=== PATIENT | female | born 1935 | race Caucasian/White ===

== ENCOUNTER 2020-07-17 12:38 | Inpatient (IN) | payer MEDICARE, OTHER, SELFPAY ==
[2020-07-17] VITALS (11 sets, daily range): BP systolic 59–239; BP diastolic 28–127; PULSE 57–104; RESP 14–18; TEMP 36.4–36.9; O2SAT 95–100; BMI 21.7
--- NOTE | 2020-07-17 | ECG_ITS ---
Test Reason : ABNORMAL LAB Blood Pressure : / mmHG Vent. Rate : 053 BPM Atrial Rate : 053 BPM P-R Int : 192 ms QRS Dur : 084 ms QT Int : 482 ms P-R-T Axes : 059 035 062 degrees QTc Int : 452 ms Sinus bradycardia with Premature atrial complexes Otherwise normal ECG Premature atrial complexes are now Present Vent. rate has decreased BY 31 BPM Referred By: Katharine Oliver Electronically Signed By:KATARZYNA GARNETT MD
--- NOTE | ~2020-07-17 | US_ITS ---
EXAMINATION: US RETROPERITONEAL LIMITED (RENAL ONLY) US RENAL DOPPLER CLINICAL INFORMATION: Hypertension. COMPARISON: None TECHNIQUE: Routine grayscale sonographic imaging of the kidneys was performed. Also, duplex Doppler imaging of the renal arteries was performed. FINDINGS: ABDOMINAL AORTA: Abdominal aorta is normal in caliber. The proximal aorta has a peak systolic velocity of 92 cm/sec. RIGHT KIDNEY: The kidney measures 10.1 cm in length, has normal cortical thickness and echotexture without hydronephrosis or nephrolithiasis. Simple cortical cyst of the upper pole measures up to 8.1 cm maximum dimension. The visualized renal vein is patent. Peak systolic velocities of the right renal artery: Proximal, 109 cm/sec Mid, 127 cm/sec Distal, 78 cm/sec Doppler interrogation of intrarenal vessels reveals normal arterial waveforms with normal resistive indices in the range of 0.63 - 0.71. Peak velocity ratio of the renal artery compared to the aorta is 1.38. LEFT KIDNEY: The kidney measures 9.7 cm in length, has normal cortical thickness and echotexture without hydronephrosis or nephrolithiasis. No renal mass. The visualized renal vein is patent. Peak systolic velocities of the left renal artery: Proximal, 202 cm/sec Mid, 205 cm/sec Distal, 197 cm/sec Doppler interrogation of intrarenal vessels reveals normal arterial waveforms with normal resistive indices of 0.69 - 0.73. Peak velocity ratio of the renal artery compared to the aorta is 2.23. US/US renal doppler IMPRESSION: * No nephrolithiasis or hydronephrosis. * Benign cyst at the upper pole of the right kidney. * No Doppler imaging evidence of a hemodynamically significant renal artery stenosis.
--- NOTE | ~2020-07-17 | CT_ITS ---
EXAMINATION: CT ANGIOGRAM ABDOMEN AND PELVIS CLINICAL INFORMATION: 84-year-old female with history of hypertension. Evaluate for renal artery stenosis. COMPARISON: Renal ultrasound from 07/19/2020 TECHNIQUE: Multiple axial images were obtained through the abdomen and pelvis in the arterial phase of administration of 75 mL of Omnipaque 350 intravenous contrast. Axial images and multiplanar reformatted images are reviewed. Also, coronal and sagittal maximum intensity projection images are reviewed. Note that no additional images were obtained on an independent workstation. Currently, there are no three-dimensional images for review. This CT examination was performed using dose optimization techniques as appropriate, variously including the following: *Automated exposure control *Adjustment of mA and/or kV according to patient size (this includes techniques or standardized protocols for targeted exams where dose is matched to indication/reason for exam; i.e. extremities or head) *Use of iterative reconstruction technique DLP: 323 mGy-cm FINDINGS: VASCULATURE: Abdominal aorta: There is scattered atherosclerotic calcification of the abdominal aorta without aneurysm or dissection. There is focal, moderate stenosis of the proximal celiac trunk. The branches of the celiac artery are widely patent. The superior mesenteric artery is normal. There is a diminutive but patent inferior mesenteric artery. Renal arteries: Mild atherosclerotic calcification of right and left renal arteries without any significant stenosis. 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 Iliac vessels: The bilateral common, internal and external iliac arteries are widely patent. LUNG BASES: Normal. No pulmonary consolidation or pleural effusion at either lung base. LIVER: The liver has normal size, shape, and attenuation. No evidence of liver mass. GALLBLADDER AND BILIARY TREE: No radiopaque gallstones, wall thickening or pericholecystic fluid. No intrahepatic or extrahepatic bile duct dilatation. PANCREAS: Normal. No evidence of edema, pancreatic ductal dilatation or mass. SPLEEN: Normal. ADRENAL GLANDS: Normal. KIDNEYS AND URETERS: Kidneys are normal in size and enhance symmetrically. No nephrolithiasis, hydronephrosis or perinephric edema. Simple cyst at the upper pole of the right kidney measures up to 7 cm. No solid renal mass. BLADDER: Normal. No calculi or wall thickening. BOWEL AND PERITONEUM: No dilated loops of bowel. No focal bowel wall thickening, mesenteric fat stranding or ascites. There is an appendicolith. However, the appendix is normal in size and there is no periappendiceal fat stranding. No evidence of appendicitis. Diverticulosis of sigmoid colon without diverticulitis. ABDOMINAL WALL: Unremarkable. LYMPH NODES: No pathologic sized lymph nodes in the abdomen or pelvis. No inguinal lymphadenopathy. PELVIC VISCERA: Unremarkable. 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 Severe osteoarthritis of the right hip as manifest by severe loss of superior joint space, subarticular sclerosis, subarticular cystic change and osteophyte formation. Streak artifact is produced by components of the left total hip arthroplasty. Old L1 vertebral body compression fracture with approximately 30% anterior height loss. CT/CT angio abdomen pelvis IMPRESSION: * No evidence of renal artery stenosis. 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 * 7 cm simple cyst of the right kidney. * Sigmoid colon diverticulosis without diverticulitis. * Old compression fracture of the L1 vertebral body. 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
--- NOTE | ~2020-07-17 | US_ITS ---
EXAMINATION: US RETROPERITONEAL LIMITED (RENAL ONLY) US RENAL DOPPLER CLINICAL INFORMATION: Hypertension. COMPARISON: None TECHNIQUE: Routine grayscale sonographic imaging of the kidneys was performed. Also, duplex Doppler imaging of the renal arteries was performed. FINDINGS: ABDOMINAL AORTA: Abdominal aorta is normal in caliber. The proximal aorta has a peak systolic velocity of 92 cm/sec. RIGHT KIDNEY: The kidney measures 10.1 cm in length, has normal cortical thickness and echotexture without hydronephrosis or nephrolithiasis. Simple cortical cyst of the upper pole measures up to 8.1 cm maximum dimension. The visualized renal vein is patent. Peak systolic velocities of the right renal artery: Proximal, 109 cm/sec Mid, 127 cm/sec Distal, 78 cm/sec Doppler interrogation of intrarenal vessels reveals normal arterial waveforms with normal resistive indices in the range of 0.63 - 0.71. Peak velocity ratio of the renal artery compared to the aorta is 1.38. LEFT KIDNEY: The kidney measures 9.7 cm in length, has normal cortical thickness and echotexture without hydronephrosis or nephrolithiasis. No renal mass. The visualized renal vein is patent. Peak systolic velocities of the left renal artery: Proximal, 202 cm/sec Mid, 205 cm/sec Distal, 197 cm/sec Doppler interrogation of intrarenal vessels reveals normal arterial waveforms with normal resistive indices of 0.69 - 0.73. Peak velocity ratio of the renal artery compared to the aorta is 2.23. US/US renal BI IMPRESSION: * No nephrolithiasis or hydronephrosis. * Benign cyst at the upper pole of the right kidney. * No Doppler imaging evidence of a hemodynamically significant renal artery stenosis.
--- NOTE | 2020-07-17 14:50 | PC.NURSE ---
PT UPRIGHT IN BED, RR EVEN UNLABORED, SKIN WPD, AOX3. PT REPORTS HAS BEEN CHECKING BP AT HOME IN PREPARATION FOR PHYSICAL NEXT WEEK, AFTER SHOWER THIS AM BP WAS NOTABLY ELEVATED, PT BECAME ANXIOUS AND TOOK A HYDROXYZINE. PT'S NEUROS GROSSLY INTACT, PT IN NAD, OFFERS NO COMPLAINTS, DENEIS HEADACHE/BLURRY VISION/URINARY SX. PT STS TAKES HTN MEDS, HAS BEEN TAKING PRESCRIBED. PT AMBULATED TO BR W/ EVEN STEADY GAIT TO PROVIDE URINE SAMPLE. PT AWAITING PRIMARY PROVIDER JELENA.
[2020-07-17 15:07] LABS: Color Urine YELLOW; Glucose Urine UA NEG (NEG); Leukocyte Esterase Urine NEG (NEG); Nitrite Urine NEG (NEG); PH 7.5 (5.0-8.0); Specific Gravity - Urine 1.015 (1.005-1.025); Urine Blood NEG (NEG); Urine Ketones 5 MG/DL (NEG); Urine Protein NEG (NEG-TRACE)
[2020-07-17 15:08] LABS: Appearance Urine CLEAR
--- NOTE | 2020-07-17 16:18 | ECG_ITS ---
Test Reason : MEDICAL Blood Pressure : / mmHG Vent. Rate : 088 BPM Atrial Rate : 088 BPM P-R Int : 198 ms QRS Dur : 094 ms QT Int : 368 ms P-R-T Axes : -20 023 054 degrees QTc Int : 445 ms Normal sinus rhythm Normal ECG When compared with ECG of 06-JUL-2015 20:12, No significant change was found Referred By: Katharine Oliver Electronically Signed By:KATARZYNA GARNETT MD
--- NOTE | 2020-07-17 16:21 | ED_ITS ---
HPI - General Adult General Chief complaint: General Medical Stated complaint: HIGH BLOOD PRESSURE Time Seen by Provider: 07/17/20 16:05 Source: patient Mode of arrival: ambulatory Limitations: no limitations History of Present Illness HPI narrative: Patient comes to emergency room complaining of high blood pressure. Patient states that she took her blood pressure at home, it was close to 240 systolic. Patient states that she does not have any chest pain, no headache, no shortness of breath. Patient has been on several blood pressure medications, currently on 25 mg of hydrochlorothiazide in 160 mg of valsartan in the morning and 80 at night. Patient states that she is concerned about the side effects of the valsartan. Patient has been taking it since December of 2019, states that she has frequent lightheadedness that started since she has been on valsartan. patient denies any new symptoms. Patient states that she gets very nervous before taking her blood pressure due to fear of being high. A t this time, patient complaining of feeling anxious from being in the hospital. Related Data Allergies Allergy/AdvReac Type Severity Reaction Status Date / Time NARCOTICS AdvReac Mild NAUSEA & Uncoded 01/03/20 14:41 VOMITING Review of Systems Review of Systems: Constitutional : No Weight loss, No Fever, No Chills, No Night Sweats, No Fatigue, No Malaise ENT/Mouth : No Hearing loss, No Ear Pain, No Nasal Congestion, No Sinus Pain, No Hoarseness, No sore throat, No Rhinorrhea, No Swallowing Difficulty Eyes: No Eye Pain, No Swelling, No Redness, No Foreign Body, No Discharge, No Vision Changes Cardiovascular : No Chest Pain, No SOB, No Dyspnea on Exertion, No Orthopnea, No Edema, No Palpitations, complaining of frequent episodes of lightheadedness since she started losartan. Respiratory : No Cough, No Sputum, No Wheezing, No Smoke Exposure, No Dyspnea Gastrointestinal : No Nausea, No Vomiting, No Diarrhea, No Constipation, No abdo rakan Pain, No Hematochezia, No Melena Genitourinary : no irregular bleeding, No Dysuria, No Urinary Frequency, No Hematuria, No Urinary Incontinence, No Urgency, No Flank Pain, No Urinary Flow Changes, No Hesitancy Musculoskeletal : No joint pain, No Myalgias, No Joint Swelling Skin : No Skin Lesions, No rash Neuro : No Weakness, No Numbness, No Paresthesias, No Loss of Consciousness, no headache Psych : Complaining of continued anxiety, No Depression, No SI/HI/AH/VH, No Social Issues, Heme/Lymph: No Bruising, No Bleeding,No Lymphadenopathy Endocrine : No Polyuria, No Polydipsia, No Temperature Intolerance [facility] Past Medical History Medical History Anxiety Arthritis HTN (hypertension) Hypothyroid Surgical History History of hip replacement Social History Social History Alcohol intake: never Smoking Status: Never smoker Use of substances other than those prescribed or required for medical reasons: No Advance Directives: No Advance Directives Information Provided: Yes Physical Exam Vital Signs: Vital Signs: Last Vital Signs Temp 97.9 F 07/17/20 17:58 Pulse 92 07/17/20 20:32 Resp 16 07/17/20 20:32 BP 120/65 07/17/20 20:32 Pulse Ox 100 07/17/20 20:32 Body Mass Index 21.7 Appearance: Alert. Oriented X3. Very anxious Eyes: Pupils equal, round and reactive to light. ENT: Pharynx normal. Neck: Normal inspection. Neck supple. No lymph nodes noted. No crepitus CVS: Normal heart rate and rhythm. Pulses normal. Normal S1 and S2 Respiratory: No respiratory distress. Breath sounds normal. No Wheezing. No rales Abdomen: Soft and nontender. No rigidity. No distention. good BS x4 Skin: Skin warm and dry. Normal skin color. Normal skin turgor. Extremities: No lower extremity edema. No Lacerations. No Rash Neuro: Oriented X 3. No motor deficit. No sensory deficit. Moving all extermities. No slurred speech. Course Course Course Narrative: I discussed the EKG with Dr. Posey, patient's EKG is fairly benign. Patient received 1 dose of 100 mg of p.o. labetalol for blood pressure of 239/127. Patient initially responded well, however the patient's blood pressure then dropped to 59 systolic with a heart rate of 30. Patient had to be given 2 L of normal saline bolus, 0.5 mg of atropine, within minutes, patient's blood pressure improved to 132/67 systolic with a heart rate of 82. Patient asymptomatic. Of note, patient's low blood pressure is not due to sepsis. It was secondary to medication. I discussed the patient again with Dr. Posey. Patient is being admitted by Dr. Mcintosh Medical Decision Making Lab Data Result diagrams: 07/17/20 16:33 07/17/20 16:33 Labs: Lab Results 07/17/20 07/17/20 07/17/20 Range/Units 14:56 16:33 16:33 WBC 5.5 (4.8-10.8) X10*3/uL RBC 4.47 (4.20-5.50) X10*6/uL Hgb 13.7 (12.0-16.0) g/dl Hct 41.0 (37-47) % MCV 91.7 (80-98) fL MCH 30.6 (27.0-33.0) pg MCHC 33.4 (31.0-35.0) g/dl RDW 12.8 (11.0-16.0) % Plt Count 278 (160-400) X10*3/uL MPV 9.3 L (9.4-12.3) fL Immature Gran % (Auto) 0.2 (0.0-0.4) % Neut % (Auto) 61.7 (45-73) % Lymph % (Auto) 28.1 (20-40) % [place] % (Auto) 7.8 (2-11) % Eos % (Auto) 1.5 (0-4) % Baso % (Auto) 0.7 (0-2) % Lymph # (Auto) 1.5 (1.2-4.9) X10*3/uL [place] # (Auto) 0.4 (0.1-1.2) X10*3/uL Eos # (Auto) 0.1 (0.0-0.4) X10*3/uL Baso # (Auto) 0.0 (0.0-0.2) X10*3/uL Abs Immat Gran (auto) 0.01 (0.00-0.03) X10*3/uL Absolute Neuts (auto) 3.4 (2.0-8.3) X10*3/uL Absolute Nucleated RBC 0.000 (0.0-0.012) X10*3/uL Nucleated RBC % (auto) 0.0 (0.0-0.2) /100WBC Sodium 133 L (135-145) mmol/L Potassium 3.7 (3.3-5.1) mmol/L Chloride 96 (96-108) mmol/L Carbon Dioxide 28 (22-29) mmol/L Anion Gap 13 (12-20) BUN 13 (9-16) mg/dL Creatinine 0.69 (0.5-1.4) mg/dL Estim Creat Clear Calc 48.8 Estimated GFR > 60 Random Glucose 87 (60-115) mg/dL Calcium 9.7 (8.4-10.2) mg/dL Troponin I High Sens (<3.5-17.0) ng/L B-Natriuretic Peptide (<100) pg/mL Urine Color YELLOW Urine Appearance CLEAR Urine pH 7.5 (5.0-8.0) Ur Specific [place] 1.015 (1.005-1.025) Urine Protein NEG (NEG-TRACE) MG/DL Urine Glucose (UA) NEG (NEG) MG/DL Urine Ketones 5 (NEG) MG/DL Urine Blood NEG (NEG) Urine Nitrite NEG (NEG) Ur Leukocyte Esterase NEG (NEG) 07/17/20 07/17/20 07/17/20 Range/Units 16:33 16:33 19:01 WBC (4.8-10.8) X10*3/uL RBC (4.20-5.50) X10*6/uL Hgb (12.0-16.0) g/dl Hct (37-47) % MCV (80-98) fL MCH (27.0-33.0) pg MCHC (31.0-35.0) g/dl RDW (11.0-16.0) % Plt Count (160-400) X10*3/uL MPV (9.4-12.3) fL Immature Gran % (Auto) (0.0-0.4) % Neut % (Auto) (45-73) % Lymph % (Auto) (20-40) % [place] % (Auto) (2-11) % Eos % (Auto) (0-4) % Baso % (Auto) (0-2) % Lymph # (Auto) (1.2-4.9) X10*3/uL [place] # (Auto) (0.1-1.2) X10*3/uL Eos # (Auto) (0.0-0.4) X10*3/uL Baso # (Auto) (0.0-0.2) X10*3/uL Abs Immat Gran (auto) (0.00-0.03) X10*3/uL Absolute Neuts (auto) (2.0-8.3) X10*3/uL Absolute Nucleated RBC (0.0-0.012) X10*3/uL Nucleated RBC % (auto) (0.0-0.2) /100WBC Sodium (135-145) mmol/L Potassium (3.3-5.1) mmol/L Chloride (96-108) mmol/L Carbon Dioxide (22-29) mmol/L Anion Gap (12-20) BUN (9-16) mg/dL Creatinine (0.5-1.4) mg/dL Estim Creat Clear Calc Estimated GFR Random Glucose (60-115) mg/dL Calcium (8.4-10.2) mg/dL Troponin I High Sens 101.6 H 256.8 H D (<3.5-17.0) ng/L B-Natriuretic Peptide 109 H (<100) pg/mL Urine Color Urine Appearance Urine pH (5.0-8.0) Ur Specific [place] (1.005-1.025) Urine Protein (NEG-TRACE) MG/DL Urine Glucose (UA) (NEG) MG/DL Urine Ketones (NEG) MG/DL Urine Blood (NEG) Urine Nitrite (NEG) Ur Leukocyte Esterase (NEG) ECG Data Attestation: I personally reviewed and interpreted this ECG as follows: (Heart rate 88, sinus rhythm, mild ST depression in V4 V5, no T-wave inversion. EKG 2.: Sinus rhythm, heart rate 84, no EKG changes from 1st EKG . EKG 3: Sinus bradycardia, heart rate 53, no ST segment changes.) Discharge Plan Discharge Clinical Impression: Hypertension, Hypotension due to medication Patient Disposition: Admitted As Inpatient
[2020-07-17] MEDS: LORazepam 1 MG TABLET PO (16:27)
[2020-07-17] MEDS: Labetalol HCL 100 MG TABLET PO (16:27)
[2020-07-17 16:38] LABS: MANUAL DIFF FLAG NO
[2020-07-17 16:43] LABS: Basophils Percent Auto 0.7 % (0-2); Eosinophils Absolute Auto 0.1 X10*3/uL (0.0-0.4); Eosinophils Percent Auto 1.5 % (0-4); Hemoglobin 13.7 g/dl (12.0-16.0); Imm Gran Abs Auto 0.01 X10*3/uL (0.00-0.03); Imm Gran Pct Auto 0.2 % (0.0-0.4); Lymphocytes Absolute Auto 1.5 X10*3/uL (1.2-4.9); Lymphocytes Percent Auto 28.1 % (20-40); Mean Corpuscular HGB Conc 33.4 g/dl (31.0-35.0); Mean Corpuscular Hemoglobin 30.6 pg (27.0-33.0); Mean Corpuscular Volume 91.7 fL (80-98); Mean Platelet Volume 9.3 fL (9.4-12.3); Monocytes Absolute Auto 0.4 X10*3/uL (0.1-1.2); Monocytes Percent Auto 7.8 % (2-11); Neutrophils Absolute Auto 3.4 X10*3/uL (2.0-8.3); Neutrophils Percent Auto 61.7 % (45-73); Platelet Count 278 X10*3/uL (160-400); Red Blood Count 4.47 X10*6/uL (4.20-5.50); Red Cell Distribution Width 12.8 % (11.0-16.0); White Blood Count 5.5 X10*3/uL (4.8-10.8)
[2020-07-17 16:59] LABS: Anion Gap 13 (12-20); Blood Urea Nitrogen 13 mg/dL (9-16); Calcium 9.7 mg/dL (8.4-10.2); Carbon Dioxide 28 mmol/L (22-29); Chloride 96 mmol/L (96-108); Creatinine Clr Calc Pharmacy 48.8; Estimated Glomerular Filt Rate > 60; Glucose Random 87 mg/dL (60-115); Potassium 3.7 mmol/L (3.3-5.1); Sodium 133 mmol/L (135-145)
[2020-07-17 17:06] LABS: B Type Natriuretic Peptide 109 pg/mL (<100)
[2020-07-17 17:20] LABS: Troponin-I High Sensitivity 101.6 ng/L (<3.5-17.0)
--- NOTE | 2020-07-17 17:56 | PC.NURSE ---
REPEAT EKG WAS DONE AT 1752 ,MD MALDONADO AWARE .
[2020-07-17 19:57] LABS: Troponin-I High Sensitivity 256.8 ng/L (<3.5-17.0)
--- NOTE | 2020-07-17 20:34 | PC.NURSE ---
PT NOTED TO HAVE BECOME HYPOTENSIVE BP 59/28, THIS RN TO PT'S ROOM W/ DR OCHOA, BP CHECKED MULTIPLE TIMES, HYPOTENSION CONFIRMED. AT SAME TIME PT VERY SLEEPY, AROUSABLE TO VOICE BUT NOT FULLY AWAKE, BRADYCARDIA NOTED ON TELE MONITOR, CONFIRMED W/ 12 LEAD ECG, SINUS MARTIN IN 40'S. PT MEDICATED W/ 0.5 MG ATROPINE AND 1 MG GLUCAGON PER V/O DR OCHOA, PACER PADS IN PLACE. PT'S HR QUICKLY RESPONDED TO ATROPINE, INCREASED TO 80'S/90'S, 2L NS INFUSING ON PRESSURE BAGS. PT QUICKLY BACK TO BASELINE, AWAKE/ALERT, OFFERING NO COMPLAINTS. PT REPORTS HX OF HYPOTENSION AND BRADYCARDIA IN PAST DURING HOSPITALIZATIONS.
--- NOTE | 2020-07-17 22:35 | PM.IMHP ---
History of Present Illness Date of Service: 07/17/20 Chief Complaint: Elevated blood pressure 84-year-old female with past medical history hypertension, anxiety presented the hospital a chief complaint of lower blood pressure. Patient reported that she regular medications this morning requested later when she checked blood pressure her blood pressure was elevated 2 and 39/127. She became panicky and subsequently came to the ER for further evaluation. Patient denied any chest pain palpitations lightheadedness dizziness. Denies any numbness tingling. Denies any fever chills cough. Review of all other systems is negative except mentioned above ER course: For ER team patient blood pressure was 237/127 on presentation-patient was given labetalol 100; patient was notable be anxious and was given Ativan 2 mg. Subsequently patient's blood pressure dropped to 59/28. Patient was asymptomatic. Patient was also noted to be bradycardic. Patient was given atropine and glucagon. Patient report that she such drop in blood pressure before with some blood pressure medicine. EKG showed subtle ST changes in V4 V5. ER team notified Dr. Posey recommended no acute intervention continue to monitor. Patient was given 2 L of IV fluid and subsequently blood pressure improved. Latest being 116/59. Heart rate improved to 80s. Patient asymptomatic. Admitted for further management. [facility] Medical History (Updated 07/21/20 @ 13:14 by Kali Fraga MD) Anxiety Arthritis HTN (hypertension) Hypothyroid Renal artery aneurysm Surgical History History of hip replacement Social History Household Members: Family Housing: Apartment Alcohol intake: never Smoking Status: Never smoker service: No Current occupational status: retired Meds Allergies Allergy/AdvReac Type Severity Reaction Status Date / Time NARCOTICS AdvReac Mild NAUSEA & Uncoded 01/03/20 14:41 VOMITING Active Medications: Current Medications Generic Name Dose Route Start Last Admin Trade Name Freq PRN Reason Stop Dose Admin Acetaminophen 650 mg 07/17/20 22:21 Acetaminophen 325 Mg Tablet PO Q6H PRN Pain, Mild (Pain Scale 1-3) Sodium Chloride 1,000 mls @ 100 mls/hr 07/17/20 22:30 Ns IVCONT .Q10H MATHEUS Senna 17.2 mg 07/17/20 22:21 Sennosides 8.6 Mg Tablet PO BEDTIME PRN Constipation Sodium Chloride 3 ml 04/02/21 00:00 0.9 % Sodium Chloride Flush 3 Ml Syringe IVFLUSH QSHIFT [facility] Home Medications Medication Instructions Recorded Confirmed Last Taken Type PreserVision AREDS-2 1 tab PO BID 07/18/20 07/18/20 07/17/20 History Stimucal 1 tab PO DAILY 07/18/20 07/18/20 07/17/20 History Ultimate Susan Probiotic 1 cap PO DAILY 07/18/20 07/18/20 07/17/20 History cholecalciferol (vitamin D3) 25 mcg PO DAILY 07/18/20 07/18/20 07/17/20 History [Vitamin D3] hydrochlorothiazide 25 mg PO DAILY 07/18/20 07/18/20 07/17/20 History hydroxyzine HCl 10 mg PO QID PRN 07/18/20 07/18/20 07/17/20 History levothyroxine 50 mcg PO Q2D@0630 07/18/20 07/18/20 Unknown History levothyroxine 75 mcg PO Q2D@0630 07/18/20 07/18/20 Unknown History Physical Exam Vital Signs and Narrative: Vital Signs: Last Vital Signs Temp 97.9 F 07/17/20 17:58 Pulse 79 07/17/20 22:31 Resp 16 07/17/20 22:31 BP 116/59 L 07/17/20 22:31 Pulse Ox 97 07/17/20 22:31 Body Mass Index 21.7 Gen: Appears be in no acute distress HEENT: NCAT, Moist mucosa. Pulmonary: Vesicular breath sounds, fair air entry CVS: Normal S1-S2 Abdomen: BS+, Soft, Nontender Extremities: Warm well perfused Neuro: Alert and awake. Grossly nonfocal Results Labs CBC and Chem 7: 07/21/20 06:10 07/21/20 06:10 Labs: Laboratory Results - last 24 hr 07/17/20 07/17/20 07/17/20 14:56 16:33 16:33 MCV 91.7 MCH 30.6 MCHC 33.4 RDW 12.8 Plt Count 278 MPV 9.3 L Immature Gran % (Auto) 0.2 Neut % (Auto) 61.7 Lymph % (Auto) 28.1 [place] % (Auto) 7.8 Eos % (Auto) 1.5 Baso % (Auto) 0.7 Lymph # (Auto) 1.5 [place] # (Auto) 0.4 Eos # (Auto) 0.1 Baso # (Auto) 0.0 Abs Immat Gran (auto) 0.01 Absolute Neuts (auto) 3.4 Absolute Nucleated RBC 0.000 Nucleated RBC % (auto) 0.0 Anion Gap 13 Estim Creat Clear Calc 48.8 Estimated GFR > 60 Random Glucose 87 Calcium 9.7 Troponin I High Sens B-Natriuretic Peptide Urine Color YELLOW Urine Appearance CLEAR Urine pH 7.5 Ur Specific [place] 1.015 Urine Protein NEG Urine Glucose (UA) NEG Urine Ketones 5 Urine Blood NEG Urine Nitrite NEG Ur Leukocyte Esterase NEG 07/17/20 07/17/20 07/17/20 16:33 16:33 19:01 MCV MCH MCHC RDW Plt Count MPV Immature Gran % (Auto) Neut % (Auto) Lymph % (Auto) [place] % (Auto) Eos % (Auto) Baso % (Auto) Lymph # (Auto) [place] # (Auto) Eos # (Auto) Baso # (Auto) Abs Immat Gran (auto) Absolute Neuts (auto) Absolute Nucleated RBC Nucleated RBC % (auto) Anion Gap Estim Creat Clear Calc Estimated GFR Random Glucose Calcium Troponin I High Sens 101.6 H 256.8 H D B-Natriuretic Peptide 109 H Urine Color Urine Appearance Urine pH Ur Specific [place] Urine Protein Urine Glucose (UA) Urine Ketones Urine Blood Urine Nitrite Ur Leukocyte Esterase Assessment and Plan (1) Hypertension: Qualifiers: Hypertension type: unspecified Qualified Code(s): I10 - Essential (primary) hypertension Problem details: BP is still high Status: Acute 84-year-old female with past medical history of hypertension presented to the hospital with a chief complaint of elevated blood pressure. Hypertensive urgency: Significantly improved with 1 dose of labetalol. Hold home losartan. Continue hydrochlorothiazide. Be restarted on home antihypertensives as needed. Hypotension: Secondary labetalol. Improved with IV fluids. Bradycardia: Secondary to medication. Patient was given glucagon and atropine. Currently heart rate is stable. Cardiology notified. Continue monitor. Anxiety: Hydroxyzine p.r.n.. DVT Prophylaxis: Subcu heparin Code status: Full code
[2020-07-17 22:58] LABS: COVID-19 Test Negative (Negative)
[2020-07-18] VITALS (10 sets, daily range): BP systolic 101–173; BP diastolic 62–92; PULSE 67–88; RESP 13–19; TEMP 36.2–36.7; O2SAT 95–100
[2020-07-18 07:20] LABS: MANUAL DIFF FLAG NO
[2020-07-18 07:23] LABS: Basophils Percent Auto 0.7 % (0-2); Eosinophils Absolute Auto 0.2 X10*3/uL (0.0-0.4); Eosinophils Percent Auto 3.7 % (0-4); Hematocrit 32.8 % (37-47); Hemoglobin 10.9 g/dl (12.0-16.0); Lymphocytes Absolute Auto 1.1 X10*3/uL (1.2-4.9); Lymphocytes Percent Auto 25.6 % (20-40); Mean Corpuscular HGB Conc 33.2 g/dl (31.0-35.0); Mean Corpuscular Hemoglobin 30.9 pg (27.0-33.0); Mean Corpuscular Volume 92.9 fL (80-98); Mean Platelet Volume 9.2 fL (9.4-12.3); Monocytes Absolute Auto 0.5 X10*3/uL (0.1-1.2); Monocytes Percent Auto 12.3 % (2-11); Neutrophils Absolute Auto 2.5 X10*3/uL (2.0-8.3); Neutrophils Percent Auto 57.7 % (45-73); Platelet Count 212 X10*3/uL (160-400); Red Blood Count 3.53 X10*6/uL (4.20-5.50); Red Cell Distribution Width 13.1 % (11.0-16.0); White Blood Count 4.3 X10*3/uL (4.8-10.8)
[2020-07-18 07:57] LABS: Anion Gap 11 (12-20); Blood Urea Nitrogen 15 mg/dL (9-16); Calcium 8.5 mg/dL (8.4-10.2); Carbon Dioxide 26 mmol/L (22-29); Chloride 104 mmol/L (96-108); Creatinine Clr Calc Pharmacy 49.6; Estimated Glomerular Filt Rate > 60; Glucose Random 70 mg/dL (60-115); Potassium 3.9 mmol/L (3.3-5.1); Sodium 137 mmol/L (135-145)
--- NOTE | 2020-07-18 09:25 | PC.NURSE ---
dr. ramos (performing arts road manager) at bedside, pt aware of plan of care for admission to hosp.
--- NOTE | 2020-07-18 09:36 | PM.CNCAR ---
History of Present Illness History of Present Illness Date of Service: 07/18/20 Requesting physician: Kali Fraga Chief complaint: HYPERTENSIVE URGENCY Narrative: 84-year-old female with background history of hypertension anxiety disorder was presenting to hospital with elevated blood pressure. She said she incidentally checked her blood pressure and found to be significantly elevated at 230/120. She said she had no symptoms but checked it instantly. After this she had significant dietary and started panicking. She came to the emergency department with panic attack. She was given labetalol and Ativan and then had significant drop in the blood pressure. She was given IV fluids and glucagon and improved. She does not remember any of this. She denies chest pain or shortness of breath. Blood pressure control is okay right now. Review of Systems Review of Systems: Yes all other systems are reviewed and are negative [facility] Past Medical History Medical History Anxiety Arthritis HTN (hypertension) Hypothyroid Surgical History Surgical History History of hip replacement Social History Social History Household Members: Family Housing: Apartment Do you presently have visiting nurse or other home services: No Alcohol intake: never Smoking Status: Never smoker Use of substances other than those prescribed or required for medical reasons: No Have you been hit, kicked, punched, or otherwise hurt by someone within the past year? If so, by whom?: No Do you feel safe in your current relationship?: Yes Is there a partner from a previous relationship who is making you feel unsafe now?: No Are you made to feel afraid or neglected: No Advance Directives: No Advance Directives Information Provided: Yes Do you have thoughts of harming others: None Do you have a plan to hurt others: No Plan Recently lost weight without trying: No service: No Current occupational status: retired Meds Allergies Allergy/AdvReac Type Severity Reaction Status Date / Time NARCOTICS AdvReac Mild NAUSEA & Uncoded 01/03/20 14:41 VOMITING Active Medications: Current Medications Generic Name Dose Route Start Last Admin Trade Name Freq PRN Reason Stop Dose Admin Acetaminophen 650 mg 07/17/20 22:21 Acetaminophen 325 Mg Tablet PO Q6H PRN Pain, Mild (Pain Scale 1-3) Sodium Chloride 1,000 mls @ 100 mls/hr 07/17/20 22:30 07/18/20 00:00 Ns IVCONT 100 mls/hr .Q10H MATHEUS Administration Senna 17.2 mg 07/17/20 22:21 Sennosides 8.6 Mg Tablet PO BEDTIME PRN Constipation Sodium Chloride 3 ml 07/18/20 00:00 07/18/20 00:00 0.9 % Sodium Chloride Flush 3 Ml Syringe IVFLUSH 3 ml QSHIFT MATHEUS Administration Home Medications Medication Instructions Recorded Confirmed Last Taken Type Lactobac no.30-Bifidobact no.4 1 cap PO DAILY 07/18/20 07/18/20 07/17/20 History [Ultimate Susan Probiotic] Stimucal 1 tab PO DAILY 07/18/20 07/18/20 07/17/20 History cholecalciferol (vitamin D3) 25 mcg PO DAILY 07/18/20 07/18/20 07/17/20 History [Vitamin D3] hydrochlorothiazide 25 mg PO DAILY 07/18/20 07/18/20 07/17/20 History hydroxyzine HCl 10 mg PO QID PRN 07/18/20 07/18/20 07/17/20 History levothyroxine 50 mcg PO Q2D@0630 07/18/20 07/18/20 Unknown History levothyroxine 75 mcg PO Q2D@0630 07/18/20 07/18/20 Unknown History valsartan 80 mg PO DAILY@1700 07/18/20 07/18/20 07/16/20 History valsartan 160 mg PO DAILY 07/18/20 07/18/20 07/17/20 History vit C,U-Kq-xllxx-lutein-zeaxan 1 tab PO BID 07/18/20 07/18/20 07/17/20 History [PreserVision AREDS-2] Physical Exam Vital Signs: Vital Signs: Last Vital Signs Temp 97.9 F 07/18/20 07:37 Pulse 80 07/18/20 07:37 Resp 13 07/18/20 07:37 BP 149/72 H 07/18/20 07:37 Pulse Ox 98 07/18/20 07:37 Body Mass Index 21.7 GENERAL APPEARANCE: in no acute distress, well developed, well nourished. HEENT: unremarkable. HEAD: normocephalic, atraumatic. NECK/THYROID: no carotid bruit, no jugular venous distention. SKIN: no suspicious lesions, warm and dry. HEART: no murmurs, regular rate and rhythm, S1, S2 normal. LUNGS: clear to auscultation bilaterally. ABDOMEN: normal, bowel sounds present, soft, nontender, nondistended. EXTREMITIES: no clubbing, cyanosis, or edema. PERIPHERAL PULSES: equal. NEUROLOGIC: nonfocal, alert and oriented. PSYCH: mood/affect full range. Results Labs and Meds Result diagrams: 07/18/20 07:11 07/18/20 07:11 Lab results: Laboratory Results - last 24 hr 07/17/20 07/17/20 07/17/20 14:56 16:33 16:33 WBC 5.5 RBC 4.47 Hgb 13.7 Hct 41.0 MCV 91.7 MCH 30.6 MCHC 33.4 RDW 12.8 Plt Count 278 MPV 9.3 L Immature Gran % (Auto) 0.2 Neut % (Auto) 61.7 Lymph % (Auto) 28.1 [place] % (Auto) 7.8 Eos % (Auto) 1.5 Baso % (Auto) 0.7 Lymph # (Auto) 1.5 [place] # (Auto) 0.4 Eos # (Auto) 0.1 Baso # (Auto) 0.0 Abs Immat Gran (auto) 0.01 Absolute Neuts (auto) 3.4 Absolute Nucleated RBC 0.000 Nucleated RBC % (auto) 0.0 Sodium 133 L Potassium 3.7 Chloride 96 Carbon Dioxide 28 Anion Gap 13 BUN 13 Creatinine 0.69 Estim Creat Clear Calc 48.8 Estimated GFR > 60 Random Glucose 87 Calcium 9.7 Troponin I High Sens B-Natriuretic Peptide Urine Color YELLOW Urine Appearance CLEAR Urine pH 7.5 Ur Specific [place] 1.015 Urine Protein NEG Urine Glucose (UA) NEG Urine Ketones 5 Urine Blood NEG Urine Nitrite NEG Ur Leukocyte Esterase NEG COVID-19 (ODIN) COVID-19 Clin Com 07/17/20 07/17/20 07/17/20 16:33 16:33 19:01 WBC RBC Hgb Hct MCV MCH MCHC RDW Plt Count MPV Immature Gran % (Auto) Neut % (Auto) Lymph % (Auto) [place] % (Auto) Eos % (Auto) Baso % (Auto) Lymph # (Auto) [place] # (Auto) Eos # (Auto) Baso # (Auto) Abs Immat Gran (auto) Absolute Neuts (auto) Absolute Nucleated RBC Nucleated RBC % (auto) Sodium Potassium Chloride Carbon Dioxide Anion Gap BUN Creatinine Estim Creat Clear Calc Estimated GFR Random Glucose Calcium Troponin I High Sens 101.6 H 256.8 H D B-Natriuretic Peptide 109 H Urine Color Urine Appearance Urine pH Ur Specific [place] Urine Protein Urine Glucose (UA) Urine Ketones Urine Blood Urine Nitrite Ur Leukocyte Esterase COVID-19 (ODIN) COVID-19 [employer] Com 07/17/20 07/18/20 07/18/20 22:33 07:11 07:11 WBC 4.3 L RBC 3.53 L D Hgb 10.9 L D Hct 32.8 L MCV 92.9 MCH 30.9 MCHC 33.2 RDW 13.1 Plt Count 212 MPV 9.2 L Immature Gran % (Auto) 0.0 Neut % (Auto) 57.7 Lymph % (Auto) 25.6 [place] % (Auto) 12.3 H Eos % (Auto) 3.7 Baso % (Auto) 0.7 Lymph # (Auto) 1.1 L [place] # (Auto) 0.5 Eos # (Auto) 0.2 Baso # (Auto) 0.0 Abs Immat Gran (auto) 0.00 Absolute Neuts (auto) 2.5 Absolute Nucleated RBC 0.000 Nucleated RBC % (auto) 0.0 Sodium 137 Potassium 3.9 Chloride 104 Carbon Dioxide 26 Anion Gap 11 L BUN 15 Creatinine 0.68 Estim Creat Clear Calc 49.6 Estimated GFR > 60 Random Glucose 70 Calcium 8.5 D Troponin I High Sens B-Natriuretic Peptide Urine Color Urine Appearance Urine pH Ur Specific [place] Urine Protein Urine Glucose (UA) Urine Ketones Urine Blood Urine Nitrite Ur Leukocyte Esterase COVID-19 (ODIN) Negative COVID-19 Clin Com See Note Assessment and Plan (1) Hypertension: Qualifiers: Hypertension type: unspecified Qualified Code(s): I10 - Essential (primary) hypertension Status: Acute Pleasant 84-year-old female here for hypertension. She was given medications which led to significant drop the blood pressure. She is on hydrochlorothiazide and valsartan at home. Continue same medications and add amlodipine the regimen. Will have to titrate amlodipine to assess how she reacts to this. She had mild troponin leak in the setting of significantly elevated blood pressure and fluctuation in blood pressure. She is saying she has significant fluctuation of blood pressure just like this. Will check for renal artery stenosis with an ultrasound. Pheochromocytoma can present similarly too. Thank you for allowing me to participate in the care of your patient. Please feel free to contact me if you have any questions.
[2020-07-18] MEDS: 0.9 % Sodium Chloride Flush 3 ML SYRINGE IVFLUSH ×4 (10:20→20:52)
[2020-07-18] MEDS: amLODIPine Besylate 5 MG TABLET PO (11:01)
--- NOTE | 2020-07-18 12:38 | HO.PM.IMPN ---
Subjective Subjective Date of Service: 07/18/20 Interval History: anxiety Cardiovascular Cardiovascular: Reports no additional cardiovascular complaints Respiratory Respiratory: Reports no additional respiratory complaints Physical Exam Vital Signs: Vital Signs: Last Vital Signs Temp 97.9 F 07/18/20 07:37 Pulse 76 07/18/20 11:01 Resp 15 07/18/20 10:17 BP 161/81 H 07/18/20 11:01 Pulse Ox 98 07/18/20 10:17 Body Mass Index 21.7 General: AO X 3, no acute distress Resp: CTA bilateral CVS: S1,S2,RRR GI: soft, non tender, non distended Neuro: motor grossly intact Psych: appropriate affect Objective Data Current Medications Generic Name Dose Route Start Last Admin Trade Name Freq PRN Reason Stop Dose Admin Acetaminophen 650 mg 07/17/20 22:21 Acetaminophen 325 Mg Tablet PO Q6H PRN Pain, Mild (Pain Scale 1-3) Amlodipine Besylate 5 mg 07/18/20 09:50 07/18/20 11:01 Amlodipine Besylate 5 Mg Tablet PO 5 mg DAILY [facility] Administration Protocol Hydrochlorothiazide 25 mg 07/19/20 09:00 Hydrochlorothiazide 25 Mg Tablet PO DAILY [facility] Protocol Hydroxyzine HCl 10 mg 07/18/20 09:47 Hydroxyzine Hcl 10 Mg Tablet PO QID PRN Anxiety Sodium Chloride 1,000 mls @ 100 mls/hr 07/17/20 22:30 07/18/20 10:00 Ns IVCONT Infused .Q10H [facility] Infusion Levothyroxine Sodium 75 mcg 07/20/20 06:30 Levothyroxine Sodium 75 Mcg Tablet PO Q2D@0630 MATHEUS Levothyroxine Sodium 50 mcg 07/20/20 06:30 Levothyroxine Sodium 50 Mcg Tablet PO Q2D@0630 [facility] Non-Formulary Medication 1 cap 07/19/20 09:00 Lactobac No.30-Bifidobact No.4 [Ultimate Susan Probiotic] PO DAILY [facility] Non-Formulary Medication 1 tab 07/18/20 21:00 Vit C,U-Ng-Lojfs-Lutein-Zeaxan [Preservision Areds-2] PO BID [facility] Senna 17.2 mg 07/17/20 22:21 Sennosides 8.6 Mg Tablet PO BEDTIME PRN Constipation Sodium Chloride 3 ml 07/18/20 00:00 07/18/20 10:20 0.9 % Sodium Chloride Flush 3 Ml Syringe IVFLUSH 3 ml QSHIFT [facility] Administration Valsartan 80 mg 07/18/20 17:00 Valsartan 80 Mg Tablet PO DAILY@1700 [facility] Protocol Valsartan 160 mg 07/19/20 09:00 Valsartan 160 Mg Tablet PO DAILY [facility] Protocol Vitamin D 25 mcg 07/19/20 09:00 Cholecalciferol (Vitamin D3) 25 Mcg Tablet PO DAILY [facility] Labs CBC & Chem 7: 07/18/20 07:11 07/18/20 07:11 Assessment and Plan (1) Hypertension: Status: Acute Assessment and Plan: 84-year-old female with past medical history of hypertension presented to the hospital with a chief complaint of elevated blood pressure. Hypertensive urgency With significant drop after Ativan and labetalol Will hold beta-blockers Continue valsartan, HCTZ, added amlodipine 5 mg daily, check renal Doppler Hypothyroid Synthroid Troponemia likely due to Blood pressure fluctuations no evidence of [place]
--- NOTE | 2020-07-18 12:56 | PC.NURSE ---
nurse to nurse given to dara(rn), pt aware of plan of care for admission to hosp.
--- NOTE | 2020-07-18 13:01 | MHC.CM.PN ---
CM MET WITH PT AND HER S/O WHO WAS AT BEDSIDE. PT REPORTS SHE LIVES WITH S/O AND IS INDEPENDENT WITH ALL [employer] M[employer]. PT DENIES THE USE OR NEED FOR DME OR SERVICES. PT DOES HAVE A HCP NAMING HER DAUGHTER HOWEVER SHE REQUESTED TO COMPLETE A NEW ONE TODAY ADDING HER S/O, STEFF SPRING HER ALTERNATE. HCP COMPLETED. PT CONFIRMS HER LISTED PCP, LUZ KANG, ACCURATE. IMM DELIVERED CURRENT DC PLAN IS HOME WITH NO SERVICES PT WILL SELF ARRANGE TRANSPORT
--- NOTE | 2020-07-18 13:07 | PC.NURSE ---
PT HAS IV #20 TO L AND R LOWER FOREARM, PLACED EARLIER ON ARRIVAL TO ER.
--- NOTE | 2020-07-18 13:12 | PC.NURSE ---
pt is eating lunch when she is finished she will be transported to room 368 with [employer].
--- NOTE | 2020-07-18 13:30 | PC.NURSE ---
pacerpads d/c'd hr consistently within the normal 60-100. md aware.
[2020-07-18] MEDS: 0.9 % Sodium Chloride 1,000 ML 100 ML IVCONT ×3 (14:13→23:39)
[2020-07-18] MEDS: Valsartan 80 MG TABLET PO (16:36)
[2020-07-18] MEDS: Acetaminophen 325 MG TABLET 650 MG PO (19:22)
--- NOTE | 2020-07-18 22:52 | PC.NURSE ---
2100 BP-173/92 NOTIFIED.NO NEW ORDERS AT THIS TIME.
[2020-07-19] VITALS (8 sets, daily range): BP systolic 153–205; BP diastolic 80–106; PULSE 83–89; RESP 16–18; TEMP 36.4–36.7; O2SAT 97–98
[2020-07-19 07:05] LABS: MANUAL DIFF FLAG NO
[2020-07-19 07:22] LABS: Basophils Absolute Auto 0.1 X10*3/uL (0.0-0.2); Basophils Percent Auto 1.2 % (0-2); Eosinophils Absolute Auto 0.3 X10*3/uL (0.0-0.4); Eosinophils Percent Auto 7.9 % (0-4); Hematocrit 38.4 % (37-47); Hemoglobin 12.8 g/dl (12.0-16.0); Lymphocytes Absolute Auto 1.8 X10*3/uL (1.2-4.9); Lymphocytes Percent Auto 43.6 % (20-40); Mean Corpuscular HGB Conc 33.3 g/dl (31.0-35.0); Mean Corpuscular Hemoglobin 31.6 pg (27.0-33.0); Mean Corpuscular Volume 94.8 fL (80-98); Mean Platelet Volume 9.8 fL (9.4-12.3); Monocytes Absolute Auto 0.5 X10*3/uL (0.1-1.2); Monocytes Percent Auto 12.1 % (2-11); Neutrophils Absolute Auto 1.4 X10*3/uL (2.0-8.3); Neutrophils Percent Auto 35.2 % (45-73); Platelet Count 253 X10*3/uL (160-400); Red Blood Count 4.05 X10*6/uL (4.20-5.50); Red Cell Distribution Width 13.2 % (11.0-16.0); White Blood Count 4.1 X10*3/uL (4.8-10.8)
[2020-07-19 07:59] LABS: Anion Gap 9 (12-20); Blood Urea Nitrogen 16 mg/dL (9-16); Carbon Dioxide 29 mmol/L (22-29); Chloride 105 mmol/L (96-108); Creatinine Clr Calc Pharmacy 46.8; Estimated Glomerular Filt Rate > 60; Glucose Fasting 82 mg/dL (60-99); Sodium 139 mmol/L (135-145)
[2020-07-19] MEDS: Valsartan 160 MG TABLET PO ×2 (08:36→16:55)
[2020-07-19] MEDS: 0.9 % Sodium Chloride Flush 3 ML SYRINGE IVFLUSH ×3 (08:37→20:52)
[2020-07-19] MEDS: hydroCHLOROthiazide 25 MG TABLET PO (08:37)
[2020-07-19] MEDS: Cholecalciferol (Vitamin D3) 25 MCG TABLET PO (08:37)
[2020-07-19] MEDS: amLODIPine Besylate 5 MG TABLET PO ×2 (08:37→13:12)
--- NOTE | 2020-07-19 11:15 | P.PNIM_ITS ---
Subjective Subjective Date of Service: 07/19/20 Interval History: anxious Cardiovascular Cardiovascular: Reports no additional cardiovascular complaints Respiratory Respiratory: Reports no additional respiratory complaints Physical Exam Vital Signs: Vital Signs: Last Vital Signs Temp 98.1 F 07/19/20 08:00 Pulse 74 07/18/20 23:32 Resp 18 07/19/20 08:00 BP 177/99 H 07/19/20 10:03 Pulse Ox 98 07/19/20 08:00 Body Mass Index 21.7 General: AO X 3, no acute distress Resp: CTA bilateral CVS: S1,S2,RRR GI: soft, non tender, non distended Neuro: motor grossly intact Psych: appropriate affect Objective Data Current Medications Generic Name Dose Route Start Last Admin Trade Name Freq PRN Reason Stop Dose Admin Acetaminophen 650 mg 07/17/20 22:21 07/18/20 19:22 Acetaminophen 325 Mg Tablet PO 650 mg Q6H PRN Administration Pain, Mild (Pain Scale 1-3) Amlodipine Besylate 5 mg 07/18/20 09:50 07/19/20 08:37 Amlodipine Besylate 5 Mg Tablet PO 5 mg DAILY MATHEUS Administration Protocol Hydrochlorothiazide 25 mg 07/19/20 09:00 07/19/20 08:37 Hydrochlorothiazide 25 Mg Tablet PO 25 mg DAILY MATHEUS Administration Protocol Hydroxyzine HCl 10 mg 07/18/20 09:47 Hydroxyzine Hcl 10 Mg Tablet PO QID PRN Anxiety Levothyroxine Sodium 75 mcg 07/20/20 06:30 Levothyroxine Sodium 75 Mcg Tablet PO Q2D@0630 MATHEUS Levothyroxine Sodium 50 mcg 07/20/20 06:30 Levothyroxine Sodium 50 Mcg Tablet PO Q2D@0630 MATHEUS Multivitamins/Minerals 1 tab 07/18/20 21:00 07/19/20 08:37 Vits A,C,E/Lutein/Minerals Tablet PO 1 tab BID [facility] Administration Senna 17.2 mg 07/17/20 22:21 Sennosides 8.6 Mg Tablet PO BEDTIME PRN Constipation Sodium Chloride 3 ml 07/18/20 00:00 07/19/20 08:37 0.9 % Sodium Chloride Flush 3 Ml Syringe IVFLUSH 3 ml QSHIFT [facility] Administration Valsartan 80 mg 07/18/20 17:00 07/18/20 16:36 Valsartan 80 Mg Tablet PO 80 mg DAILY@1700 MATHEUS Administration Protocol Valsartan 160 mg 07/19/20 09:00 07/19/20 08:36 Valsartan 160 Mg Tablet PO 160 mg DAILY MATHEUS Administration Protocol Vitamin D 25 mcg 07/19/20 09:00 07/19/20 08:37 Cholecalciferol (Vitamin D3) 25 Mcg Tablet PO 25 mcg DAILY MATHEUS Administration Labs CBC & Chem 7: 07/19/20 06:38 07/19/20 06:38 Assessment and Plan (1) Hypertension: Status: Acute Assessment and Plan: 84-year-old female with past medical history of hypertension presented to the hospital with a chief complaint of elevated blood pressure. Hypertensive urgency With significant drop after Ativan and labetalol Will hold beta-blockers Continue valsartan increased to 160 bid, HCTZ, added amlodipine 5 mg daily, will increase to 10mg daily renal Doppler with left renal artery stenosis check cta cardio following Hypothyroid Synthroid Troponemia likely due to Blood pressure fluctuations no evidence of [place]
[2020-07-19] MEDS: iohexoL 350 MG/ML 75 ML INFUS..BTL IV (15:44)
--- NOTE | 2020-07-19 18:22 | P.PNCA_ITS ---
Subjective Subjective Date of Service: 07/19/20 Interval history: BP is high. No symptoms. Review of Systems Review of Systems Yes all other systems are reviewed and are negative Physical Exam Vital Signs: Last Vital Signs Temp 98.1 F 07/19/20 16:00 Pulse 84 07/19/20 16:00 Resp 16 07/19/20 16:00 BP 153/80 H 07/19/20 16:00 Pulse Ox 97 07/19/20 16:00 Body Mass Index 21.7 GENERAL APPEARANCE: in no acute distress, well developed, well nourished. HEENT: unremarkable. HEAD: normocephalic, atraumatic. NECK/THYROID: no carotid bruit, no jugular venous distention. SKIN: no suspicious lesions, warm and dry. HEART: no murmurs, regular rate and rhythm, S1, S2 normal. LUNGS: clear to auscultation bilaterally. ABDOMEN: normal, bowel sounds present, soft, nontender, nondistended. EXTREMITIES: no clubbing, cyanosis, or edema. PERIPHERAL PULSES: equal. NEUROLOGIC: nonfocal, alert and oriented. PSYCH: anxious. Results Labs and Meds Result diagrams: 07/19/20 06:38 07/19/20 06:38 Lab results: Laboratory Results - last 24 hr 07/19/20 07/19/20 06:38 06:38 WBC 4.1 L RBC 4.05 L Hgb 12.8 Hct 38.4 MCV 94.8 MCH 31.6 MCHC 33.3 RDW 13.2 Plt Count 253 MPV 9.8 Immature Gran % (Auto) 0.0 Neut % (Auto) 35.2 L Lymph % (Auto) 43.6 H [place] % (Auto) 12.1 H Eos % (Auto) 7.9 H Baso % (Auto) 1.2 Lymph # (Auto) 1.8 [place] # (Auto) 0.5 Eos # (Auto) 0.3 Baso # (Auto) 0.1 Abs Immat Gran (auto) 0.00 Absolute Neuts (auto) 1.4 L Absolute Nucleated RBC 0.000 Nucleated RBC % (auto) 0.0 Sodium 139 Potassium 4.0 Chloride 105 Carbon Dioxide 29 Anion Gap 9 L BUN 16 Creatinine 0.72 Estim Creat Clear Calc 46.8 Estimated GFR > 60 Fasting Glucose 82 Calcium 9.0 Imaging Radiologist's impression: Impressions Renal Ultrasound 07/19/20 09:30 IMPRESSION: * No nephrolithiasis or hydronephrosis. * Benign cyst at the upper pole of the right kidney. * No Doppler imaging evidence of a hemodynamically significant renal artery stenosis. Renal Ultrasound 07/19/20 09:30 IMPRESSION: * No nephrolithiasis or hydronephrosis. * Benign cyst at the upper pole of the right kidney. * No Doppler imaging evidence of a hemodynamically significant renal artery stenosis. Abdomen/Pelvis CTA 07/19/20 14:55 IMPRESSION: * No evidence of renal artery stenosis. 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 * 7 cm simple cyst of the right kidney. * Sigmoid colon diverticulosis without diverticulitis. * Old compression fracture of the L1 vertebral body. 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 Progress Note: A&P Assessment and plan (1) Hypertension: Status: Acute Assessment and Plan: 84-year-old female who is presenting with significantly elevated blood pressure. She has no symptoms. His blood pressure continues to be high. She said her blood pressure has been quite fluctuant in the past where get control and then she has spikes of elevated blood pressures. We are working her up for secondary causes. She had renal ultrasound which we will follow-up. Blood pressure is elevated and I think we should increase amlodipine. Also we have room on her valsartan to go to 160 mg twice a day. If with these changes she continues to be hypertensive then I think we give her clonidine 0.1 mg twice a day because that will also help her anxiety. Thank you for allowing me to participate in the care of your patient. Please feel free to contact me if you have any questions. Fall Risk Details Current Medications: Current Medications Generic Name Dose Route Start Last Admin Trade Name Freq PRN Reason Stop Dose Admin Acetaminophen 650 mg 07/17/20 22:21 07/18/20 19:22 Acetaminophen 325 Mg Tablet PO 650 mg Q6H PRN Administration Pain, Mild (Pain Scale 1-3) Amlodipine Besylate 10 mg 07/20/20 09:00 Amlodipine Besylate 5 Mg Tablet PO DAILY [facility] Protocol Hydrochlorothiazide 25 mg 07/19/20 09:00 07/19/20 08:37 Hydrochlorothiazide 25 Mg Tablet PO 25 mg DAILY [facility] Administration Protocol Hydroxyzine HCl 10 mg 07/18/20 09:47 Hydroxyzine Hcl 10 Mg Tablet PO QID PRN Anxiety Levothyroxine Sodium 75 mcg 07/20/20 06:30 Levothyroxine Sodium 75 Mcg Tablet PO Q2D@0630 MATHEUS Levothyroxine Sodium 50 mcg 07/20/20 06:30 Levothyroxine Sodium 50 Mcg Tablet PO Q2D@0630 MATHEUS Multivitamins/Minerals 1 tab 07/18/20 21:00 07/19/20 08:37 Vits A,C,E/Lutein/Minerals Tablet PO 1 tab BID [facility] Administration Senna 17.2 mg 07/17/20 22:21 Sennosides 8.6 Mg Tablet PO BEDTIME PRN Constipation Sodium Chloride 3 ml 07/18/20 00:00 07/19/20 16:55 0.9 % Sodium Chloride Flush 3 Ml Syringe IVFLUSH 3 ml QSHIFT [facility] Administration Valsartan 160 mg 07/19/20 09:00 07/19/20 08:36 Valsartan 160 Mg Tablet PO 160 mg DAILY [facility] Administration Protocol Valsartan 160 mg 07/19/20 17:00 07/19/20 16:55 Valsartan 160 Mg Tablet PO 160 mg DAILY@1700 [facility] Administration Protocol Vitamin D 25 mcg 07/19/20 09:00 07/19/20 08:37 Cholecalciferol (Vitamin D3) 25 Mcg Tablet PO 25 mcg DAILY [facility]HEUS Administration Time Spent With Patient Time: Total time spent is greater than 50% in coordination of care (as documented) at patient's floor/unit and/or counseling patient: Time with patient: less than 15 minutes
[2020-07-20] VITALS (10 sets, daily range): BP systolic 130–180; BP diastolic 67–91; PULSE 56–97; RESP 16–18; TEMP 35.8–36.9; O2SAT 97–100
[2020-07-20] MEDS: Levothyroxine Sodium 50 MCG TABLET PO (06:32)
[2020-07-20] MEDS: Cholecalciferol (Vitamin D3) 25 MCG TABLET PO (07:49)
[2020-07-20] MEDS: 0.9 % Sodium Chloride Flush 3 ML SYRINGE IVFLUSH ×3 (07:49→23:02)
[2020-07-20] MEDS: amLODIPine Besylate 5 MG TABLET 10 MG PO (07:50)
[2020-07-20] MEDS: hydroCHLOROthiazide 25 MG TABLET PO (07:51)
[2020-07-20] MEDS: Valsartan 160 MG TABLET PO ×2 (07:51→16:04)
[2020-07-20 09:49] LABS: Anion Gap 11 (12-20); Blood Urea Nitrogen 15 mg/dL (9-16); Calcium 9.7 mg/dL (8.4-10.2); Carbon Dioxide 32 mmol/L (22-29); Chloride 97 mmol/L (96-108); Creatinine Clr Calc Pharmacy 46.8; Estimated Glomerular Filt Rate > 60; Glucose Random 80 mg/dL (60-115); Potassium 4.1 mmol/L (3.3-5.1); Sodium 136 mmol/L (135-145)
--- NOTE | 2020-07-20 11:27 | MHC.CM.PN ---
PER CONVERSATION WITH HOSPITALIST, PLAN IS FOR PATIENT DISCHARGE Tuesday07/21/20. CURRENT PLAN IS HOME NO SERVICES. IMM 07/20 IN CHART
--- NOTE | 2020-07-20 11:37 | P.PNCA_ITS ---
Subjective Subjective Date of Service: 07/20/20 Interval history: Asymptomatic. BP is still elevated. Physical Exam Vital Signs: Last Vital Signs Temp 96.5 F L 07/20/20 07:46 Pulse 75 07/20/20 07:51 Resp 18 07/20/20 07:46 BP 158/88 H 07/20/20 07:51 Pulse Ox 99 07/20/20 07:46 Body Mass Index 21.7 GENERAL APPEARANCE: in no acute distress, well developed, well nourished. HEENT: unremarkable. HEAD: normocephalic, atraumatic. NECK/THYROID: no carotid bruit, no jugular venous distention. SKIN: no suspicious lesions, warm and dry. HEART: no murmurs, regular rate and rhythm, S1, S2 normal. LUNGS: clear to auscultation bilaterally. ABDOMEN: normal, bowel sounds present, soft, nontender, nondistended. EXTREMITIES: no clubbing, cyanosis, or edema. PERIPHERAL PULSES: equal. NEUROLOGIC: nonfocal, alert and oriented. PSYCH: anxious. Results Labs and Meds Result diagrams: 07/19/20 06:38 07/20/20 09:08 Lab results: Laboratory Results - last 24 hr 07/20/20 09:08 Sodium 136 Potassium 4.1 Chloride 97 Carbon Dioxide 32 H Anion Gap 11 L BUN 15 Creatinine 0.72 Estim Creat Clear Calc 46.8 Estimated GFR > 60 Random Glucose 80 Calcium 9.7 D Imaging Radiologist's impression: Impressions Renal Ultrasound 07/19/20 09:30 IMPRESSION: * No nephrolithiasis or hydronephrosis. * Benign cyst at the upper pole of the right kidney. * No Doppler imaging evidence of a hemodynamically significant renal artery stenosis. Renal Ultrasound 07/19/20 09:30 IMPRESSION: * No nephrolithiasis or hydronephrosis. * Benign cyst at the upper pole of the right kidney. * No Doppler imaging evidence of a hemodynamically significant renal artery stenosis. Abdomen/Pelvis CTA 07/19/20 14:55 IMPRESSION: * No evidence of renal artery stenosis. 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 * 7 cm simple cyst of the right kidney. * Sigmoid colon diverticulosis without diverticulitis. * Old compression fracture of the L1 vertebral body. 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 Progress Note: A&P Assessment and plan (1) Hypertension: Problem details: BP is still high Status: Acute Assessment and Plan: 84-year-old female with uncontrolled BP. BP is still elevated. Incidental finding of renal artery aneurysm. Please ask vascular surgery to co mment. If BP continues to be high in the evening then add clonidine 0.1 mg BID. Thank you for allowing me to participate in the care of your patient. Please feel free to contact me if you have any questions. Fall Risk Details Current Medications: Current Medications Generic Name Dose Route Start Last Admin Trade Name Freq PRN Reason Stop Dose Admin Acetaminophen 650 mg 07/17/20 22:21 07/18/20 19:22 Acetaminophen 325 Mg Tablet PO 650 mg Q6H PRN Administration Pain, Mild (Pain Scale 1-3) Amlodipine Besylate 10 mg 07/20/20 09:00 07/20/20 07:50 Amlodipine Besylate 5 Mg Tablet PO 10 mg DAILY MATHEUS Administration Protocol Hydrochlorothiazide 25 mg 07/19/20 09:00 07/20/20 07:51 Hydrochlorothiazide 25 Mg Tablet PO 25 mg DAILY MATHEUS Administration Protocol Hydroxyzine HCl 10 mg 07/18/20 09:47 Hydroxyzine Hcl 10 Mg Tablet PO QID PRN Anxiety Levothyroxine Sodium 75 mcg 07/20/20 06:30 07/20/20 06:36 Levothyroxine Sodium 75 Mcg Tablet PO Not Given Q2D@0630 MATHEUS Levothyroxine Sodium 50 mcg 07/20/20 06:30 07/20/20 06:32 Levothyroxine Sodium 50 Mcg Tablet PO 50 mcg Q2D@0630 MATHEUS Administration Multivitamins/Minerals 1 tab 07/18/20 21:00 07/20/20 07:51 Vits A,C,E/Lutein/Minerals Tablet PO 1 tab BID MATHEUS Administration Senna 17.2 mg 07/17/20 22:21 Sennosides 8.6 Mg Tablet PO BEDTIME PRN Constipation Sodium Chloride 3 ml 07/18/20 00:00 07/20/20 07:49 0.9 % Sodium Chloride Flush 3 Ml Syringe IVFLUSH 3 ml QSHIFT MATHEUS Administration Valsartan 160 mg 07/19/20 09:00 07/20/20 07:51 Valsartan 160 Mg Tablet PO 160 mg DAILY MATHEUS Administration Protocol Valsartan 160 mg 07/19/20 17:00 07/19/20 16:55 Valsartan 160 Mg Tablet PO 160 mg DAILY@1700 MATHEUS Administration Protocol Vitamin D 25 mcg 07/19/20 09:00 07/20/20 07:49 Cholecalciferol (Vitamin D3) 25 Mcg Tablet PO 25 mcg DAILY MATHEUS Administration Time Spent With Patient Time: Total time spent is greater than 50% in coordination of care (as documented) at patient's floor/unit and/or counseling patient: Time with patient: 15 - 24 minutes
--- NOTE | 2020-07-20 13:48 | HO.PM.IMPN ---
Subjective Subjective Date of Service: 07/20/20 Interval History: uncontrolled htn , ? small renal art aneurism Review of Systems Patient denies any chest pain or shortness of breath or abdominal pain or fever or chills. Denies any cough or phlegm Denies any weakness or numbness. Physical Exam Vital Signs: Vital Signs: Last Vital Signs Temp 98.5 F 07/20/20 12:00 Pulse 97 07/20/20 12:00 Resp 17 07/20/20 12:00 BP 163/82 H 07/20/20 12:00 Pulse Ox 97 07/20/20 12:00 Body Mass Index 21.7 Physical exam: Constitutional: Not in acute distress, somewhat anxious. Cvs: rrr, [id number] , no murmur res: clear to auscultation ,no rhonchii or wheezing abd: no rebound or guarding ,nt, bs present. ext pulses present , no cyanosis neuro: axo3 , nonfocal. Objective Data Current Medications Generic Name Dose Route Start Last Admin Trade Name Freq PRN Reason Stop Dose Admin Acetaminophen 650 mg 07/17/20 22:21 07/18/20 19:22 Acetaminophen 325 Mg Tablet PO 650 mg Q6H PRN Administration Pain, Mild (Pain Scale 1-3) Amlodipine Besylate 10 mg 07/20/20 09:00 07/20/20 07:50 Amlodipine Besylate 5 Mg Tablet PO 10 mg DAILY MATHEUS Administration Protocol Hydrochlorothiazide 25 mg 07/19/20 09:00 07/20/20 07:51 Hydrochlorothiazide 25 Mg Tablet PO 25 mg DAILY MATHEUS Administration Protocol Hydroxyzine HCl 10 mg 07/18/20 09:47 Hydroxyzine Hcl 10 Mg Tablet PO QID PRN Anxiety Levothyroxine Sodium 75 mcg 07/20/20 06:30 07/20/20 06:36 Levothyroxine Sodium 75 Mcg Tablet PO Not Given Q2D@0630 MATHEUS Levothyroxine Sodium 50 mcg 07/20/20 06:30 07/20/20 06:32 Levothyroxine Sodium 50 Mcg Tablet PO 50 mcg Q2D@0630 MATHEUS Administration Multivitamins/Minerals 1 tab 07/18/20 21:00 07/20/20 07:51 Vits A,C,E/Lutein/Minerals Tablet PO 1 tab BID MATHEUS Administration Senna 17.2 mg 07/17/20 22:21 Sennosides 8.6 Mg Tablet PO BEDTIME PRN Constipation Sodium Chloride 3 ml 07/18/20 00:00 07/20/20 07:49 0.9 % Sodium Chloride Flush 3 Ml Syringe IVFLUSH 3 ml QSHIFT MATHEUS Administration Valsartan 160 mg 07/19/20 09:00 07/20/20 07:51 Valsartan 160 Mg Tablet PO 160 mg DAILY MATHEUS Administration Protocol Valsartan 160 mg 07/19/20 17:00 07/19/20 16:55 Valsartan 160 Mg Tablet PO 160 mg DAILY@1700 MATHEUS Administration Protocol Vitamin D 25 mcg 07/19/20 09:00 07/20/20 07:49 Cholecalciferol (Vitamin D3) 25 Mcg Tablet PO 25 mcg DAILY MATHEUS Administration Labs CBC & Chem 7: 07/19/20 06:38 07/20/20 09:08 Assessment and Plan (1) Hypertension: Problem details: BP is still high Status: Acute Assessment and Plan: 84-year-old female with past medical history of hypertension presented to the hospital with a chief complaint of elevated blood pressure. Hypertensive urgency: blood pressure flactuating in 130-160 mmhg intially With significant drop after Ativan and labetalol Will hold beta-blockers Continue valsartan increased to 160 bid, HCTZ, cardio recommended to add clonidine if blood pressure continue to be uncontrolled. 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 will add vascular input for above. cardio following Hypothyroid Synthroid Troponemia likely due to Blood pressure fluctuations no evidence of MS
[2020-07-20] MEDS: Acetaminophen 325 MG TABLET 650 MG PO (20:39)
[2020-07-21] MEDS: hydrOXYzine HCL 10 MG TABLET PO (00:39)
[2020-07-21 03:57] VITALS: BP 168/72; PULSE 83; RESP 16; TEMP 36.1; O2SAT 99
[2020-07-21 06:54] LABS: Hematocrit 36.7 % (37-47); Hemoglobin 12.3 g/dl (12.0-16.0); Mean Corpuscular HGB Conc 33.5 g/dl (31.0-35.0); Mean Corpuscular Hemoglobin 31.3 pg (27.0-33.0); Mean Corpuscular Volume 93.4 fL (80-98); Mean Platelet Volume 9.5 fL (9.4-12.3); Platelet Count 235 X10*3/uL (160-400); Red Blood Count 3.93 X10*6/uL (4.20-5.50); Red Cell Distribution Width 12.9 % (11.0-16.0); White Blood Count 4.5 X10*3/uL (4.8-10.8)
[2020-07-21 07:27] LABS: Anion Gap 10 (12-20); Blood Urea Nitrogen 14 mg/dL (9-16); Calcium 9.1 mg/dL (8.4-10.2); Carbon Dioxide 30 mmol/L (22-29); Chloride 98 mmol/L (96-108); Creatinine Clr Calc Pharmacy 46.8; Estimated Glomerular Filt Rate > 60; Glucose Random 82 mg/dL (60-115); Potassium 4.2 mmol/L (3.3-5.1); Sodium 134 mmol/L (135-145)
[2020-07-21 07:52] VITALS: BP 142/78; PULSE 75; RESP 16; TEMP 36.7; O2SAT 100
[2020-07-21 09:34] VITALS: BP 142/78
[2020-07-21] MEDS: amLODIPine Besylate 5 MG TABLET 10 MG PO (09:34)
[2020-07-21 09:36] VITALS: BP 142/78
[2020-07-21] MEDS: cloNIDine HCL 0.1 MG TABLET PO (09:36)
[2020-07-21 09:37] VITALS: BP 142/78
[2020-07-21] MEDS: hydroCHLOROthiazide 25 MG TABLET PO (09:37)
[2020-07-21] MEDS: Valsartan 160 MG TABLET PO (09:37)
[2020-07-21] MEDS: Cholecalciferol (Vitamin D3) 25 MCG TABLET PO (09:38)
[2020-07-21] MEDS: 0.9 % Sodium Chloride Flush 3 ML SYRINGE IVFLUSH (09:39)
[2020-07-21 11:29] VITALS: BP 130/67; PULSE 102; RESP 17; TEMP 36.4; O2SAT 97
--- NOTE | 2020-07-21 13:01 | PM.PNCARD ---
Subjective Subjective Date of Service: 07/21/20 Principal diagnosis: Labile hypertension Interval history: Patient is extremely anxious about her overall health condition blood pressure control. Her blood pressures since introduction of clonidine is well optimized. She is tolerating all medications without any hypotension. She still remains very anxious. She says prior to this onset she has been having some exertional chest pressure like symptoms. She has never had any ischemic evaluation. Review of Systems Constitutional: Reports no additional constitutional complaints Cardiovascular: Denies chest pain at rest, Reports chest pain with activity (For last many months) and Reports dyspnea on exertion Respiratory: Reports no additional respiratory complaints and Reports dyspnea on exertion Gastrointestinal: Reports no additional gastrointestinal complaints Reports system reviewed and no additional complaints, except as documented Psychiatric: Reports no additional psychiatric complaints Endocrine: Reports no additional endocrine complaints Physical Exam Vital Signs: Last Vital Signs Temp 97.6 F 07/21/20 11:29 Pulse 102 H 07/21/20 11:29 Resp 17 07/21/20 11:29 BP 130/67 07/21/20 11:29 Pulse Ox 97 07/21/20 11:29 Body Mass Index 21.7 Const General: cooperative, comfortable, no acute distress, alert, awake and anxious Nutritional Appearance: thin Orientation/consciousness: patient oriented x3 Limitations: no limitations Neck Neck: Yes trachea midline, Yes supple and Yes no JVD Resp Effort & Inspection: normal respiratory effort Auscultation: clear to auscultation bilaterally Cardio Jugular venous distension: no JVD Palpation: normal PMI Rate: regular rate Rhythm: regular rhythm Heart sounds: S1 normal heart sound present and S2 normal heart sound present GI Auscultation: normal bowel sounds Skin General skin exam: no rashes or lesions noted Neuro General: patient oriented x3 Extrem General: Yes no clubbing, cyanosis or edema Psych Appearance: grossly normal Affect: Anxious affect present Results Labs and Meds Result diagrams: 07/21/20 06:10 07/21/20 06:10 Lab results: Laboratory Results - last 24 hr 07/21/20 07/21/20 06:10 06:10 WBC 4.5 L RBC 3.93 L Hgb 12.3 Hct 36.7 L MCV 93.4 MCH 31.3 MCHC 33.5 RDW 12.9 Plt Count 235 MPV 9.5 Absolute Nucleated RBC 0.000 Nucleated RBC % (auto) 0.0 Sodium 134 L Potassium 4.2 Chloride 98 Carbon Dioxide 30 H Anion Gap 10 L BUN 14 Creatinine 0.72 Estim Creat Clear Calc 46.8 Estimated GFR > 60 Random Glucose 82 Calcium 9.1 D Progress Note: A&P Assessment and plan (1) Hypertension: Problem details: BP is still high Status: Acute Assessment and Plan: Hypertensive urgency with extremely labile blood pressure in elderly woman with a lot of anxiety component to a blood pressure. However with current regimen her blood pressure appears to be well controlled, I think clonidine is a good choice for her case. Continue all other antihypertensive regimen. Advised to monitor blood pressure at home on a regular basis. Low-salt diet was recommended. Increase fluid intake was recommended. Stress mitigation strategies to be pursued. She will benefit probably from antianxiety medications as well. She will require cardiac workup as an outpatient including an echocardiogram and a stress Mibi. Onset all her questions. Thank you for allowing us to partake in the care. Will follow up as outpatient Fall Risk Details Current Medications: Current Medications Generic Name Dose Route Start Last Admin Trade Name Freq PRN Reason Stop Dose Admin Acetaminophen 650 mg 07/17/20 22:21 07/20/20 20:39 Acetaminophen 325 Mg Tablet PO 650 mg Q6H PRN Administration Pain, Mild (Pain Scale 1-3) Albuterol/Ipratropium 3 ml 07/20/20 18:43 Albuterol/Iprat 2.5/0.5mg 3 Ml Ampul.Neb INHALE RQ6H PRN sob Amlodipine Besylate 10 mg 07/20/20 09:00 07/21/20 09:34 Amlodipine Besylate 5 Mg Tablet PO 10 mg DAILY MATHEUS Administration Protocol Clonidine HCl 0.1 mg 07/21/20 09:00 07/21/20 09:36 Clonidine Hcl 0.1 Mg Tablet PO 0.1 mg BID MATHEUS Administration Protocol Hydrochlorothiazide 25 mg 07/19/20 09:00 07/21/20 09:37 Hydrochlorothiazide 25 Mg Tablet PO 25 mg DAILY MATHEUS Administration Protocol Hydroxyzine HCl 10 mg 07/18/20 09:47 07/21/20 00:39 Hydroxyzine Hcl 10 Mg Tablet PO 10 mg QID PRN Administration Anxiety Levothyroxine Sodium 75 mcg 07/20/20 06:30 07/20/20 06:36 Levothyroxine Sodium 75 Mcg Tablet PO Not Given Q2D@0630 MATHEUS Levothyroxine Sodium 50 mcg 07/20/20 06:30 07/20/20 06:32 Levothyroxine Sodium 50 Mcg Tablet PO 50 mcg Q2D@0630 [facility] Administration Multivitamins/Minerals 1 tab 07/18/20 21:00 07/21/20 09:36 Vits A,C,E/Lutein/Minerals Tablet PO 1 tab BID [facility] Administration Senna 17.2 mg 07/17/20 22:21 Sennosides 8.6 Mg Tablet PO BEDTIME PRN Constipation Sodium Chloride 3 ml 07/18/20 00:00 07/21/20 09:39 0.9 % Sodium Chloride Flush 3 Ml Syringe IVFLUSH 3 ml QSHIFT [facility] Administration Valsartan 160 mg 07/21/20 09:00 07/21/20 09:37 Valsartan 160 Mg Tablet PO 160 mg BID [facility] Administration Protocol Vitamin D 25 mcg 07/19/20 09:00 07/21/20 09:38 Cholecalciferol (Vitamin D3) 25 Mcg Tablet PO 25 mcg DAILY [facility] Administration Time Spent With Patient Time: Total time spent is greater than 50% in coordination of care (as documented) at patient's floor/unit and/or counseling patient: Time with patient: 25 - 35 minutes
--- NOTE | 2020-07-21 13:12 | PM.DS ---
DS: Providers Provider Date of Service: 07/21/20 Date of admission: 07/17/20 22:21 Primary care physician: Xiomara Pearce, MSN Consults: 07/17/20 22:21 Consult to Cardiology Routine Consulting Provider: Sonu Posey Reason for consultation: bradycardia; ekg changes;htn urgency DS: Diagnosis Discharge Diagnosis (1) Hypertension: Status: Acute Problem details: BP is still high (2) Renal artery aneurysm: Status: Acute DS: Medications Discharge Medications Home Medications: Home Medications Medication Instructions Recorded Confirmed PreserVision AREDS-2 1 tab PO BID 07/18/20 07/18/20 Stimucal 1 tab PO DAILY 07/18/20 07/18/20 Ultimate Susan Probiotic 1 cap PO DAILY 07/18/20 07/18/20 cholecalciferol (vitamin D3) 25 mcg PO DAILY 07/18/20 07/18/20 [Vitamin D3] hydrochlorothiazide 25 mg PO DAILY 07/18/20 07/18/20 hydroxyzine HCl 10 mg PO QID PRN 07/18/20 07/18/20 levothyroxine 50 mcg PO Q2D@0630 07/18/20 07/18/20 levothyroxine 75 mcg PO Q2D@0630 07/18/20 07/18/20 Previous Rx's Medication Instructions Recorded amlodipine 10 mg PO DAILY #30 tab 07/21/20 clonidine HCl 0.1 mg PO BID #60 tab 07/21/20 valsartan 160 mg PO BID #60 tab 07/21/20 DS: Summary Hospital Course Hospital Course: patient was admitted for hypertensive urgency complicated by medication induced hypotension. she was watched closely as her blood pressure medications were adjusted. her diovan was increased to 160mg bid and started on amlodipine 10mg daily and clonidine 0.1mg bid. she had renal us and CTA that did not show significant aretery stenosis but did show 2 incendntal renal artery aneurysms that will be followed outpatinet with vascular. BP became more stable and patient will be discharged. Time Spent with Patient Time attestation: Total time spent providing and/or coordinating discharge services: Discharge coordination time: Greater than 30 minutes Physical Exam Vital Signs: Vital Signs: Last Vital Signs Temp 97.6 F 07/21/20 11:29 Pulse 102 H 07/21/20 11:29 Resp 17 07/21/20 11:29 BP 130/67 07/21/20 11:29 Pulse Ox 97 07/21/20 11:29 Body Mass Index 21.7 General: AO X 3, no acute distress Resp: CTA bilateral CVS: S1,S2,RRR GI: soft, non tender, non distended Neuro: motor grossly intact Psych: appropriate affect DS: Data Data Completed and Pending Labs on day of discharge: Laboratory Results - last 24 hr 07/21/20 07/21/20 06:10 06:10 WBC 4.5 L RBC 3.93 L Hgb 12.3 Hct 36.7 L MCV 93.4 MCH 31.3 MCHC 33.5 RDW 12.9 Plt Count 235 MPV 9.5 Absolute Nucleated RBC 0.000 Nucleated RBC % (auto) 0.0 Sodium 134 L Potassium 4.2 Chloride 98 Carbon Dioxide 30 H Anion Gap 10 L BUN 14 Creatinine 0.72 Estim Creat Clear Calc 46.8 Estimated GFR > 60 Random Glucose 82 Calcium 9.1 D Discharge Plan Discharge Patient Disposition: Home, Self-Care Referrals: Xiomara Pearce MSN [Primary Care Provider] - Alex Parkinson MD [Physician] - Discharge Medications: New clonidine HCl 0.1 mg Tablet 0.1 mg PO BID Qty: 60 RF: 0 amlodipine 5 mg Tablet 10 mg PO DAILY Qty: 30 RF: 0 Continued levothyroxine 75 mcg tablet 75 mcg PO Q2D@0630 RF: 0 levothyroxine 50 mcg tablet 50 mcg PO Q2D@0630 RF: 0 hydrochlorothiazide 25 mg tablet 25 mg PO DAILY RF: 0 hydroxyzine HCl 10 mg Tablet 10 mg PO QID PRN (Reason: Anxiety) RF: 0 cholecalciferol (vitamin D3) [Vitamin D3] 25 mcg (1,000 unit) Capsule 25 mcg PO DAILY RF: 0 PreserVision AREDS-2 250-90-40-1 mg Capsule 1 tab PO BID RF: 0 Ultimate Susan Probiotic 30 billion cell Capsule,Delayed Release(Dr/Ec) 1 cap PO DAILY RF: 0 Stimucal 1 tab PO DAILY RF: 0 Changed valsartan 160 mg tablet 160 mg PO BID Qty: 60 RF: 0 Discontinued valsartan 80 mg tablet 80 mg PO DAILY@1700 RF: 0 Discharge Orders: Discharge Order (Routine); Ordered 07/21/20 Ordered By: Kali Fraga Activity on Discharge: As tolerated Stand Alone Forms: Patient Portal Discharge page Care Plan Goals: bp control Health Concerns: htn, renal artery aneurysms Plan of Treatment: new bp meds as prescribed, follow up with vascular to monitor renal artery aneurysms
--- NOTE | 2020-07-21 13:28 | MHC.CM.PN ---
NURSE GIS DATABASE ADMINISTRATOR NOTE electronic medical record reviewed along with case discussed with staff nurse and on multiple disciplainry rounds, met with patient she declined vna and hospitlaist does not feel that patient needs annealer helper/no order written discharge plan home no services significant other to provide transportation at time of discharge pcp darryn vásquez, instructed patient to call for post hospital discharge follow up
== END 2020-07-21 14:30 | disposition home or self-care (01) | DRG 305 ==
LOC: HO.ED 21:26 → HO.EDOVER 23:30 → HO.S3 07-18 12:34
PROVIDERS: Internal Medicine; Admitting Provider Hospitalist; Emergency Provider Emergency Medicine; PCP Family Medicine; Visit Provider Internal Medicine
DX: I16.0 Hypertensive urgency (principal); I10 Essential (primary) hypertension; I95.2 Hypotension due to drugs; T44.8X5A Adverse effect of centrally-acting and adrenergic-neuron-blocking agents, initial encounter; Y92.9 Unspecified place or not applicable; F41.9 Anxiety disorder, unspecified; E03.9 Hypothyroidism, unspecified; Z79.890 Hormone replacement therapy; Z79.899 Other long term (current) drug therapy
CPT/HCPCS: 36415; 74174; 76775; 80048; 81003; 83880; 84484; 85025; 85027; 87635; 93005; 93975; 99284; Q9967

== ENCOUNTER → 2020-08-05 08:10 | Outpatient (REF) | payer MEDICARE, OTHER, SELFPAY ==
--- NOTE | 2020-08-05 08:15 | CA_ITS ---
Transthoracic Echocardiogram Patient (Last, First, Middle): Katina Montana M Gender: Female Date of : 1935 Age: 84 Procedure Date: 08/05/2020 Procedure Type: Transthoracic Echocardiogram Location: OP Height: 157.48 cm Weight: 53.98 kg BSA: 1.53 m2 Heart Rate: bpm BP: 125 / 72 mmHg Gateman: Referring MD: Cameron Paul MD Symptoms: I16.0 - Hypertensive urgency Study Quality: Fair ECG Rhythm: Sinus Conclusions: - The left ventricular systolic function is normal. The visually estimated ejection fraction is between 65-70%. - There is mild calcification of the aortic valve. - No obvious valvular pathology seen on this study. Findings Left Ventricle Normal left ventricular cavity size. There is mildly increased left ventricular wall thickness. The left ventricular systolic function is normal. The visually estimated ejection fraction is between 65-70%. There is no evidence of regional wall motion abnormalities. E/E prime ratio is between 8 and 15 consistent with indeterminate filling pressures. Evidence suggests grade I (mild) diastolic dysfunction. Right Ventricle Normal right ventricular cavity size and systolic function. Atria The left atrium is normal in size. The right atrium is normal in size. Aortic Valve There is mild calcification of the aortic valve. There is no aortic valve stenosis. There is no aortic valve regurgitation. Mitral Valve The mitral valve appears normal. There is trace mitral valve regurgitation. There is no mitral valve stenosis. Pulmonic Valve The pulmonic valve was not well visualized. Tricuspid Valve Normal tricuspid valve structure. There is trace tricuspid valve regurgitation. The pulmonary artery systolic pressure is normal. Great Vessels The aortic annulus, sinuses of valsalva, and asc aorta are normal in size. Venous The inferior vena cava is normal in size and collapses greater than 50% with inspiration. Pericardium/Pleural There is no evidence of pericardial effusion. Prior Study Comparison No prior study available for comparison. Recommendations, Care & Conclusions No obvious valvular pathology seen on this study. Measurements 2D Linear Measurements IVSd: 1.25 0.6-0.9/0.6-1.0 cm LVIDd: 3.22 3.9-5.3/4.2-5.9 cm LVIDd Index: 2.10 2.4-3.2/2.2-3.1 cm/m2 LVIDs: 2.05 2.0-3.6 cm LVPWd: 1.22 0.7-1.1 cm Ao Root: 3.30 2.1-3.5 cm LA Diam: 3.00 2.7-3.8/3.0-4.0 cm LAIDs Index: 1.96 1.5-2.3 cm/m2 LV Mass: 156.87 67-162/88-224 g LV Mass Index: 102.53 43-95/49-115 g/m2 LVOT Diam: 2.00 3.0+(-)1.3 cm Mitral Valve MV Pk E: 0.83 MV PK A: 1.04 MV Decel Time: 261.00 E/A: 0.80 E'Lateral: 7.93 E'Medial: 6.48 E/E' Med: 12.90 E/E' Lat: 10.50 PHT: 76.00 MVA PHT: 2.89 Decel Cotton: 3.20 Aortic Valve AoV Pk Constantine: 1.35 AoV Mn Constantine: 0.85 AoV VTI: 0.32 AoV Pk Grad: 7.00 Aov Mn Grad: 3.00 ROSHAN Cont.VTI: 2.15 LVOT LVOT Pk Constantine: 0.97 LVOT Mn Constantine: 0.63 LVOT VTI: 0.22 LVOT Pk Grad: 4.00 LVOT Mn Grad: 2.00 LVOT Diam: 2.00 LVOT Area: 3.14 Diastolic Function MV Pk E: 0.83 MV Pk A: 1.04 E/A: 0.80 E'Medial: 6.48 E/E' Med: 12.90 E' Laterial: 7.93 E/E' Lat: 10.50 Tricuspid Valve TR Pk Constantine: 2.26 TR Pk Grad: 20.00 RA Press: 3.00 RVSP: 23.00 Great Vessels Aorta Ao Root-2D: 3.30 2.0-3.7 cm Ao Asc: 3.40 2.1-3.4 cm Pulmonary Valve PV Pk Constantine: 0.83 Peak PV Grad: 3.00 Updated in Other Vendor System with Status of Final Mahendra Spencer MD electronically signed on 08/05/2020 11:49:07 AM with status of Final
== END ==
LOC: HO.CARD 08:10
PROVIDERS: Visit Provider Internal Medicine Cardiovascular Disease
DX: I16.0 Hypertensive urgency (principal)
CPT/HCPCS: 93306

== ENCOUNTER → 2020-08-11 11:17 | Outpatient (BNVA) | payer MEDICARE, OTHER, SELFPAY | PROVIDERS: PCP Family Medicine; Visit Provider Internal Medicine Cardiovascular Disease | DX: I72.2 Aneurysm of renal artery (principal); I10 Essential (primary) hypertension | CPT/HCPCS: 99212 ==

== ENCOUNTER → 2020-08-12 09:06 | Outpatient (REF) | payer MEDICARE, OTHER, SELFPAY ==
--- NOTE | ~2020-08-12 | NM_ITS ---
EXERCISE MYOCARDIAL PERFUSION STUDY INDICATION: Hypertensive on multiple medications, assess for coronary disease and ischemia TECHNIQUE: The patient was brought in for an exercise perfusion study on 08/12/2020. Patient performed exercise as per Mohsen protocol and was injected 25 mCi of sestamibi once target heart rate was achieved. Images were obtained using the SPECT gamma camera interlaced with the gating device. Images were obtained in supine position. Resting perfusion study was performed on 08/13/2020. Patient was administered 25 mCi of sestamibi intravenously at rest. Images were then obtained in supine position. Total DLP 36mGy-cm. Images were processed with the software and compared side to side in short axis, horizontal long axis and vertical long axis views. FINDINGS: Raw images were reviewed. The stress perfusion study showed no significant perfusion abnormality. Both uncorrected as well as CT attenuation corrected images were reviewed. The gated study shows normal LV systolic function with calculated LVEF of 66%. LV cavity is normal in size. The gated study shows normal wall thickening and contraction of segments. Resting study shows no significant perfusion abnormality. Gating at rest reveals normal wall motion with ejection fraction at 71%. The findings are consistent with no reversible or fixed perfusion abnormality. NM/NM cardiolite stress test IMPRESSION: 1. Myocardial perfusion imaging study shows normal myocardial perfusion. No evidence of any ischemia or infarction. 2. Gated LVEF is 60% during stress and 71% during rest. 3. Transient ischemic dilatation not present. EKG component of the test reported separately.
--- NOTE | 2020-08-12 09:15 | CA_ITS ---
Acquisition Time: 2020-08-12 09:17:50 Total Exercise Time: 00:05:06 Test Indications: Syncope Medications: CLONIDINE LEVOTHYROXINE HCTZ HYDROXYZINE AMLODIPINE VALSARTAN Protocol: SHERMAN Max HR: 136 BPM 99% of Pred: 137 BPM Max BP: 146/078 mmHG Max Work Load: 7.0 METS Exercise stress nuclear using Sherman protocol, total of 5 min 6 sec. METS 7.00 and TAPHR up to 99 %. Pt tolerated well, denies any anginal sx. EKG with occ PVC's no ischemic changes seen during exercise or in recovery. Nuclear images to follow. Normotensive response to exercise. Test reviewed with Dr. Paul. Referred By: Cameron Paul Overread By: Maris Layne NP
== END ==
LOC: HO.CARD 09:06
PROVIDERS: Visit Provider Internal Medicine Cardiovascular Disease
DX: I16.0 Hypertensive urgency (principal)
CPT/HCPCS: 78452; 93017; 93018; A9500

== ENCOUNTER → 2020-08-14 15:23 | Outpatient (BNVA) | payer MEDICARE, OTHER, SELFPAY | PROVIDERS: PCP Family Medicine; Visit Provider Surgery Vascular Surgery | DX: I72.2 Aneurysm of renal artery (principal); I83.12 Varicose veins of left lower extremity with inflammation | CPT/HCPCS: 99212 ==

== ENCOUNTER 2021-02-06 11:01 | Outpatient (REF) | payer MEDICARE, OTHER, SELFPAY ==
[2021-02-06 12:16] LABS: Blood Urea Nitrogen 16 mg/dL (9-16); Estimated Glomerular Filt Rate > 60
== END 2021-02-06 11:02 | disposition home or self-care (01) ==
LOC: HO.LAB 11:01
PROVIDERS: PCP Family Medicine; Visit Provider Surgery Vascular Surgery
DX: I72.2 Aneurysm of renal artery (principal)
CPT/HCPCS: 36415; 82565; 84520

== ENCOUNTER 2021-02-09 13:42 | Outpatient (REF) | payer MEDICARE, OTHER, SELFPAY ==
--- NOTE | ~2021-02-09 | CT_ITS ---
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 COMPARISON: Comparison is made to the previous study dated 07/19/2020. TECHNIQUE: Multiple axial images were obtained through the abdomen and pelvis following the administration of 85 mL of Omnipaque 350 intravenous contrast. Images were reviewed on a dedicated 3-D workstation. This CT examination was performed using dose optimization techniques as appropriate, variously including the following: *Automated exposure control *Adjustment of mA and/or kV according to patient size (this includes techniques or standardized protocols for targeted exams where dose is matched to indication/reason for exam; i.e. extremities or head) *Use of iterative reconstruction technique Images were evaluated on an independent dedicated 3-D workstation and 3-D images were reconstructed with concurrent radiologist supervision and subsequently interpreted. DLP: 334 mGy-cm FINDINGS: VASCULAR: Abdominal Aorta: There is scattered atherosclerotic disease throughout the abdominal aorta without evidence of abdominal aortic aneurysm. There is tortuosity to the aortoiliac segment. Celiac Trunk: The celiac trunk and its branches opacify normally without evidence of dissection, obstruction, or flow-limiting stenosis. Mesenteric Arteries: The superior and inferior mesenteric arteries are normal in caliber with no focal stenosis or dissection. Renal Arteries: There is a single right renal artery with 30% narrowing at the origin. There is a suspicion for beading with aneurysm formation in the mid and distal right renal artery. This may represent fibromuscular dysplasia. There is also a suspicion for fibromuscular dysplasia involving the left renal artery. This could be the source of the 2 aneurysms seen in the distal interlobar branches of the renal artery on the left. Both aneurysms appear to be saccular. The upper aneurysm measures 1.3 cm in diameter. The lower aneurysm measures 0.7 cm in diameter. No significant thrombus is seen within the aneurysms. No significant change is noted. No renal infarcts are demonstrated. Iliac Arteries: There is diffuse atherosclerotic disease without evidence of aneurysm. There is diffuse disease in the hypogastric arteries. No high-grade stenosis is seen. NONVASCULAR: CHEST: LUNG: No focal consolidation, nodules or masses in the lower lung hinojosa. ABDOMEN AND PELVIS: LIVER, GALLBLADDER, AND BILIARY TREE: The liver is normal in size, shape, and attenuation. No focal hepatic lesion or biliary ductal dilatation is present. The gallbladder is unremarkable with no evidence of radiopaque gallstones, gallbladder wall thickening, or obvious pericholecystic inflammatory changes. PANCREAS: Unremarkable. SPLEEN: Unremarkable. ADRENAL GLANDS: Unremarkable. KIDNEYS AND URETERS: There are bilateral nonobstructed kidneys. There is again noted a 7 cm simple cyst in the upper pole of the right kidney. BLADDER: No bladder wall thickening. No bladder calculi. GASTROINTESTINAL TRACT: There is a nonobstructive bowel gas pattern. There is diverticulosis without diverticulitis. An appendicolith is noted in the region of the appendix. No changes to suggest acute appendicitis are seen. ABDOMINAL WALL: No significant hernia is appreciated. INTRA-ABDOMINAL AND RETROPERITONEAL SPACES: No intra-abdominal free fluid collections or gas. No mesenteric, retroperitoneal, or inguinal lymphadenopathy. PELVIC VISCERA: Unremarkable. OSSEOUS STRUCTURES: Mild degenerative changes are noted within the spine. The patient is status post left hip replacement. Chondrocalcinosis of the pubic symphysis is noted. 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 There is an old L1 vertebral body fracture. CT/CT angio abdomen pelvis IMPRESSION: 1. 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 This may be the source of the aneurysms on the left, measuring 1.3 and 0.7 cm, respectively, in diameter. The aneurysms appear unchanged. No high-grade renal artery stenosis is seen. 2. There is no change in the 7 cm left renal cyst. 3. There is sigmoid diverticulosis without diverticulitis. 4. There is an old compression fracture of the L1 vertebral body.
[2021-02-09] MEDS: iohexoL 350 MG/ML 100 ML INFUS..BTL IV (15:09)
== END 2021-02-09 13:43 | disposition home or self-care (01) ==
LOC: HO.CT 13:42
PROVIDERS: PCP Family Medicine; Visit Provider Surgery Vascular Surgery
DX: I72.2 Aneurysm of renal artery (principal)
CPT/HCPCS: 74174; Q9967

== ENCOUNTER → 2021-03-03 13:07 | Outpatient (BNVA) | payer MEDICARE, OTHER, SELFPAY | PROVIDERS: PCP Family Medicine; Visit Provider Surgery Vascular Surgery | DX: I72.2 Aneurysm of renal artery (principal); I10 Essential (primary) hypertension; E03.9 Hypothyroidism, unspecified; Z88.5 Allergy status to narcotic agent | CPT/HCPCS: 99212 ==

== ENCOUNTER 2021-11-03 12:36 | Outpatient (REF) | payer MEDICARE, OTHER, SELFPAY ==
--- NOTE | ~2021-11-03 | MM_ITS ---
EXAMINATION: MM SCREENING DIGITAL BREAST TOMOSYNTHESIS, BILATERAL CLINICAL INFORMATION: Screening. Asymptomatic. The lifetime risk of breast cancer based on the Tyrer-Cuzick Model is 0.3%. COMPARISON: Mammography: November 29, 2018 and studies dating back to August 23, 2013 TECHNIQUE: Digital breast tomosynthesis is performed in both the craniocaudal and mediolateral oblique views along with computer-aided detection (CAD). Synthesized 2D images are generated from the tomosynthesis. FINDINGS: The breasts are heterogeneously dense, which may obscure small masses (ACR BI-RADS breast composition Category c). There are no significant masses, abnormal calcifications, or other abnormalities. MM/MM tomosynthesis screening BI IMPRESSION: There are no significant changes from prior study. ASSESSMENT: BI-RADS 1: Negative RECOMMENDATION: Routine annual mammography screening. This patient's information was entered into a reminder system with a target due date for their next mammogram.
--- NOTE | ~2021-11-03 | MM_ITS ---
EXAMINATION: BONE DENSITOMETRY CLINICAL INDICATION: Menopause. COMPARISON: Previous BD dated 11/29/2018 and baseline BD dated 07/15/2009. TECHNIQUE: Using a [employer] DXA System (software version: 13.1) manufactured by [email or web address], dual-energy x-ray absorptiometry was performed of the lumbar spine and left forearm radius 33%. Patient with bilateral hip replacements. The images are of good technical quality. Summary results are attached. FINDINGS: AP SPINE L1-L4: Current: BMD 1.029 g/cm2, Z-score 1.0, T-score -1.3, osteopenia, 1.8% increase from previous, 1.3% decrease from baseline (<5% change is not significant). Prior: BMD 1.011 g/cm2. Baseline: BMD 1.043 g/cm2. LEFT FOREARM RADIUS 33%: BMD 0.541 g/cm2, Z-score -0.7, T-score -3.8, osteoporosis, 4.9% decrease from baseline (<5% change is not significant). Baseline: BMD 0.569 g/cm2. IDENTIFIED RISK FACTORS: Menopause, height loss, history of fracture (adult), osteoporosis, Thiazide. HISTORY OF FRACTURE: Spine. MEDICATIONS: Calcium, vitamin D. MM/XR DEXA axial skeleton IMPRESSION: 1. DIAGNOSIS: Severe osteoporosis based on the lowest T-score value of -3.8 in the forearm radius 33% and history of fracture of spine applying World Health Organization criteria. 2. 10-YEAR FRACTURE RISK PREDICTION, FRAX: According to the guidelines, FRAX calculation should only be performed on patients in the osteopenia bone density category. Therefore, FRAX was not performed on this patient. 3. Treatment Recommendations: NOF guidelines recommend consideration for treatment in postmenopausal women and men age 50 and older presenting with the following: -A hip or vertebral (clinical or morphometric) fracture. -T-score less than or equal to -2.5 at the femoral neck or spine after appropriate evaluation to exclude secondary causes. -Low bone mass at the hip or spine and a 10-year fracture probability by FRAX of greater than or equal to 3% for hip fracture or greater than or equal to 20% for major osteoporotic fracture based on the [place] adapted WHO algorithm. 4. Other Recommendations: All treatment decisions require clinical judgment and consideration of individual patient factors, including patient preferences, comorbidities, previous drug use, risk factors not captured in the FRAX model (e.g. frailty, falls, vitamin D deficiency, increased bone turnover, interval significant decline in bone density) and possible under or overestimation of fracture risk by FRAX. Additional medical evaluation for secondary cause of low bone mineral density may be appropriate. FUTURE SCAN RECOMMENDATION: People with diagnosed cases of osteoporosis or at high risk for fracture should have regular bone mineral density tests. For patients eligible for Medicare, routine testing is allowed once every 2 years. The testing frequency can be increased to one year for patients who have rapidly progressing disease, those who are receiving or discontinuing medical therapy to restore bone mass, or have additional risk factors.
== END 2021-11-03 12:37 | disposition home or self-care (01) ==
LOC: HO.MAMMO 12:36
PROVIDERS: PCP Family Medicine; Visit Provider Family Medicine
DX: Z12.31 Encounter for screening mammogram for malignant neoplasm of breast (principal); Z13.820 Encounter for screening for osteoporosis; Z78.0 Asymptomatic menopausal state
CPT/HCPCS: 77063; 77067; 77080

== ENCOUNTER 2022-02-18 14:46 | Outpatient (REF) | payer MEDICARE, OTHER, SELFPAY ==
--- NOTE | ~2022-02-18 | CT_ITS ---
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 COMPARISON: Comparison is made to the most recent previous study dated 02/09/2021. TECHNIQUE: Multiple axial images were obtained through the abdomen and pelvis following the administration of 80 mL of Omnipaque 350 intravenous contrast. Images were reviewed on a dedicated 3-D workstation. This CT examination was performed using dose optimization techniques as appropriate, variously including the following: *Automated exposure control *Adjustment of mA and/or kV according to patient size (this includes techniques or standardized protocols for targeted exams where dose is matched to indication/reason for exam; i.e. extremities or head) *Use of iterative reconstruction technique Additional 2-D coronal and sagittal reformatted images and axial 3-D maximum intensity projection MIP images are generated on the CT workstation. . DLP: 273 mGy-cm. FINDINGS: VASCULAR: Abdominal Aorta: Again noted is scattered atherosclerotic disease throughout the abdominal aorta without evidence of abdominal aortic aneurysm. There is tortuosity of the aortic bifurcation and iliac vessels. 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 Mesenteric Arteries: The superior and inferior mesenteric arteries are normal in caliber, both with proximal disease. Renal Arteries: There is a single right renal artery without a proximal stenosis that I can appreciate. There is some eccentric calcification at the ostia. Previously noted suspicion for beading with aneurysm formation in the mid and distal right renal artery is not appreciated on the current study. I do not appreciate any convincing evidence of fibromuscular dysplasia. On the left, there is a single renal artery present. Again noted is a suspicion for fibromuscular dysplasia. This could be the source of the 2 aneurysms seen in the distal interlobar branches. Again noted are 2 adjacent aneurysms, best appreciated on coronal imaging. These appear unchanged. The more superior aneurysm measures 1.2 cm in maximal cephalocaudad dimension and the slightly more inferior and medial aneurysm measures 0.7 cm cephalocaudad dimension. When comparison is made to the prior study, there has been no interval change in appearances. NONVASCULAR: Lung bases: No focal consolidation, nodules or masses in the lower lung hinojosa. LIVER, GALLBLADDER, AND BILIARY TREE: The liver is normal in size, shape, and attenuation. No focal hepatic lesion or biliary ductal dilatation is present. The gallbladder is unremarkable with no evidence of radiopaque gallstones, gallbladder wall thickening, or obvious pericholecystic inflammatory changes. PANCREAS: Unremarkable. SPLEEN: Unremarkable. ADRENAL GLANDS: Unremarkable. KIDNEYS AND URETERS: There are bilateral nonobstructed kidneys. Again seen is a 7 cm simple cyst in the upper pole of the right kidney which needs no further imaging or follow-up. BLADDER: No bladder wall thickening. No bladder calculi. GASTROINTESTINAL TRACT: There is a nonobstructive bowel gas pattern. There is diverticulosis without diverticulitis. An appendicolith is noted in the region of the appendix. No changes to suggest acute appendicitis are seen. ABDOMINAL WALL: No significant hernia is appreciated. INTRA-ABDOMINAL AND RETROPERITONEAL SPACES: No intra-abdominal free fluid collections or gas. No mesenteric, retroperitoneal, or inguinal lymphadenopathy. PELVIC VISCERA: Detail obscured by bilateral hip prostheses. OSSEOUS STRUCTURES: Marked degenerative changes are noted within the spine. A new right hip prosthesis has been placed since the prior study with bilateral hip replacements noted at this time. No bony destructive lesions. CT/CT angio abdomen pelvis IMPRESSION: 1. 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 The aneurysms appear unchanged. No high-grade renal artery stenosis is seen. 2. Other incidental findings include an unchanged 7 cm left renal cyst and colonic diverticulosis without diverticulitis. Since the prior study, a new right hip prosthesis has been placed.
[2022-02-18] MEDS: iohexoL 350 MG/ML 100 ML INFUS..BTL IV (15:28)
[2022-02-19 08:07] LABS: Creatinine POC 0.5 mg/dL (0.5-1.4); GFR POC > 60
== END 2022-02-18 14:47 | disposition home or self-care (01) ==
LOC: HO.CT 14:46
PROVIDERS: Visit Provider Surgery Vascular Surgery
DX: I72.2 Aneurysm of renal artery (principal)
CPT/HCPCS: 74174; 82565; Q9967

== ENCOUNTER → 2022-03-02 11:33 | Outpatient (BNVA) | payer MEDICARE, OTHER, SELFPAY | PROVIDERS: PCP Family Medicine; Visit Provider Surgery Vascular Surgery | DX: I72.2 Aneurysm of renal artery (principal) | CPT/HCPCS: 99212 ==

== ENCOUNTER 2022-11-15 12:08 | Outpatient (REF) | payer MEDICARE, OTHER, SELFPAY ==
--- NOTE | ~2022-11-15 | XR_ITS ---
EXAMINATION: XR KNEE, RIGHT CLINICAL INFORMATION: Pain COMPARISON: Knee radiograph from 02/04/2014 TECHNIQUE: Four views of the right knee. FINDINGS: No acute visible fracture or dislocation. Multicompartment arthritic changes. Chondrocalcinosis along the medial lateral tibial plateau. Mild narrowing of the medial femoral tibial compartment. Mild narrowing of the lateral patellofemoral compartment. Enthesopathy at the quadriceps insertion site. Joint spaces and alignment are otherwise maintained. Trace knee joint effusion. Soft tissues are unremarkable. XR/XR knee RT 4V IMPRESSION: 1. No acute visible fracture or dislocation. 2. Multicompartment arthritic changes. 3. Trace knee joint effusion.
== END 2022-11-15 12:09 | disposition home or self-care (01) ==
LOC: HO.XRAY 12:08
PROVIDERS: Visit Provider Physician Assistant
DX: M17.11 Unilateral primary osteoarthritis, right knee (principal)
CPT/HCPCS: 73564

== ENCOUNTER 2022-11-25 11:27 | Outpatient (REF) | payer MEDICARE, OTHER, SELFPAY | END 2022-11-25 11:28 | disposition home or self-care (01) | LOC: HO.MAMMO 11:27 | PROVIDERS: PCP Family Medicine; Visit Provider Family Medicine | DX: Z12.31 Encounter for screening mammogram for malignant neoplasm of breast (principal) | CPT/HCPCS: 77063; 77067 ==

== ENCOUNTER → 2022-11-25 11:30 | Outpatient (BNV) | payer MEDICARE, OTHER, SELFPAY | PROVIDERS: PCP Family Medicine; Visit Provider Radiology Diagnostic Radiology | DX: Z12.31 Encounter for screening mammogram for malignant neoplasm of breast (principal) | CPT/HCPCS: 77063; 77067 ==